=== PATIENT | female | born 1960 | race Caucasian/White ===

== ENCOUNTER 2016-12-05 20:46 | Inpatient (IN) | payer OTHER ==
[~2016-12-05] VITALS: Ht 152.4 cm; Wt 48.0 kg
[~2016-12-05 20:46] MED LIST: AMITRIPTYLINE H25 MG PO; NALTREXONE HCL50 MG PO; NICOTINE PATCH1 EAC1 TD; PRISTIQ ER50 MG PO; TRAMADOL HCL50 MG PO; ULTRAM50 MG PO; VITAMIN B-1100 MG PO; VITAMIN D31000 UNI1 PO
[2016-12-05] MEDS ORDERED: MIRTAZAPINE30 MG PO (21:11)
[2016-12-05] MEDS ORDERED: CHLORDIAZEPOXID25 MG PO (21:13)
[2016-12-05] MEDS ORDERED: METOPROLOL SUC100 MG PO (21:13)
[2016-12-05] MEDS ORDERED: MIRTAZAPINE15 MG PO (21:14)
[2016-12-05] MEDS ORDERED: MAG-OXIDE400 MG PO (21:14)
--- NOTE | 2016-12-05 23:30 | NUR ---
PT TO ROOM 127 FROM ER. PT AWAKE AND ALERT.
--- NOTE | 2016-12-06 00:03 | NUR ---
PT ABLE TO ANSWER QUESTIONS, PT C/O GENERAL SLIGHT DISCOMFORT IN HER RT WRIST, DENIES SOB, C/O SLIGHT NAUSEA. IV SITE INTACT, NO REDNESS OR SWELLING NOTED.
--- NOTE | 2016-12-06 00:30 | NUR ---
PT INCONTINENT OF STOOL, HEENA CARE DONE, NEW ATTENDS AND CHUCKS IN PLACE, BARRIER CREAM APPLIED TO HEENA AREA. URINARY VILLANUEVA CATH PLACED, PT RONNIE WELL, URINE RETURN OBTAINED.
--- NOTE | 2016-12-06 01:12 | NUR ---
PT INCONTINENT OF LIQUID STOOL, CHANGED ATTENDS, CHUCKS, AND BLANKETS. PT ALERT AND ORIENTED X3, NOT ORIENTED TO EVENTS LEADING UP TO THIS HOSPITALIZATION. PT COOPERATIVE. RONNIE SIPS OF WATER WELL.
--- NOTE | 2016-12-06 02:20 | NUR ---
PT INCONTINENT OF LIQUID STOOL. GOWN, LINENS, AND ATTENDS CHANGED. PT ABLE TO ASSIST SOME WITH ROLLING FROM SIDE TO SIDE, HOWEVER APPEARS TO BE VERY DECONDITIONED PHYSICALLY. PT STATES SHE WOULD NOT BE ABLE TO STAND AT THE BEDSIDE.
--- NOTE | 2016-12-06 02:50 | NUR ---
PT REFUSING PO POTASSIUM AT THIS TIME, STATES "I WILL TAKE THEM LATER".
--- NOTE | 2016-12-06 03:45 | NUR ---
PT SLEEPING AT THIS TIME. VITALS STABLE.
--- NOTE | 2016-12-06 04:23 | NUR ---
CALLED TO UPDATE ON PT LOW URINE OUTPUT FOR THE LAST 90 MIN. PT HAS PRODUCED 26 ML URINE. NO FURTHER ORDERS AT THIS TIME, CONTINUE TO MONITOR.
--- NOTE | 2016-12-06 04:31 | NUR ---
IV SITES INTACT, NO REDNESS OR SWELLING NOTED, FLUIDS INFUSING EASILY. PT MOSTLY SLEEPING.
--- NOTE | 2016-12-06 10:00 | NUR ---
HAS HAD SEVERAL STOOLS SINCE 729. STOOL SAMPLE SENT TO LAB. WRIST SPLINT TO RIGHT WRIST REMAINS IN PLACE.
--- NOTE | 2016-12-06 12:10 | NUR ---
STOOLS HAVE BEEN VERY WATERY. YELLOW LIQUID. BARRIER APPLIED TO BUTTOCKS AFTER STOOLS.
[2016-12-06] MEDS ORDERED: CHLORDIAZEPOXID25 MG PO (13:46)
--- NOTE | 2016-12-06 14:03 | EKG ---
[facility] [address] [facility] [place] [address] Signed Normal sinus rhythm Left axis deviation Pulmonary disease pattern Septal infarct , age undetermined ST \T\ T wave abnormality, consider inferolateral ischemia Abnormal ECG When compared with ECG of 17-SEP-2016 16:39, Septal infarct is now present Confirmed by JEANE FOX MD ([id number]) on 12/06/2016 2:03:10 PM Electronically Signed By: JEANE FOX MD 12/06/16 1403 PATIENT NAME: TOD FRANCES Electrocardiogram DATE OF : 64 PHYSICIAN: JEANE FOX MD REPORT #: [id number] REPORT IS CONFIDENTIAL AND NOT TO BE RELEASED WITHOUT AUTHORIZATION
--- NOTE | 2016-12-06 14:15 | NUR ---
DR. FOX CALLED IN AND UPDATED ON PATIENT STATUS. IS AWARE OF U/O. BOLUS OF LR 500 ML ORDERED.
--- NOTE | 2016-12-06 14:45 | NUR ---
BOLUS 500 ML HUNG.
--- NOTE | 2016-12-06 17:45 | NUR ---
CONTINUES TO HAVE VERY WATERY STOOLS.
--- NOTE | 2016-12-06 18:25 | NUR ---
TOOK ENSURE. INCONT OF STOOL. DR. MEEKS NOTIFIED OF LABS. ORDERS RECIEVED.
--- NOTE | 2016-12-06 19:03 | NUR ---
RSTFUL. REPORT GIVEN TO NEXT SHIFT. U/O OVER LAST HOUR=20 ML. TREND IS U/O DECREASING.
--- NOTE | 2016-12-06 19:05 | NUR ---
DR. WICK HERE TO SEE PATIENT. NO FUTHER ORDERS.
--- NOTE | 2016-12-06 21:00 | NUR ---
PT INCONTINENT OF LIQUID STOOL, CHANGED CHUCKS AND ATTENDS, VILLANUEVA CATH CARE AND HEENA CARE DONE.
--- NOTE | 2016-12-06 21:17 | NUR ---
PT INCONTINENT OF LARGE AMOUT OF LIQUID STOOL, WHOLE PILLS NOTED IN STOOL.
--- NOTE | 2016-12-06 23:33 | NUR ---
PT INCONTINENT OF LIQUID STOOL. CHANGED CHUCKS AND ATTENDS, HEENA CARE AND VILLANUEVA CATH CARE DONE. PT ABLE TO ASSIST WITH ROLLING TO SIDE SLIGHTLY. PT RONNIE SIPS OF WATER.
--- NOTE | 2016-12-07 01:37 | NUR ---
PT GIVEN IV ZOFRAN FOR REPORTED NAUSEA, PT REPORTS GERD DISCOMFORT, MAALOX OFFERED, PT REFUSED AT THIS TIME.
--- NOTE | 2016-12-07 02:45 | NUR ---
PT AWAKE, DENIES ANY NEEDS AT THIS TIME.
--- NOTE | 2016-12-07 04:35 | NUR ---
IV SITES INTACT, NO REDNESS OR SWELLING NOTED, PT DENIES PAIN WITH FLUSH, FLUIDS INFUSING EASILY. PT VITALS WNL. PT INCONTINENT OF LIQUID STOOL, WHOLE PILLS NOTED IN STOOL, ATTENDS AND CHUCKS CHANGED, HEENA CARE DONE, BARRIER CREAM APPLIED, VILLANUEVA CATH CARE DONE.
--- NOTE | 2016-12-07 05:00 | NUR ---
PT NOW HAS TAKEN OFFERED MAALOX FOR GERD DISCOMFORT.
--- NOTE | 2016-12-07 06:10 | NUR ---
PT INCONTINENT OF LARGE AMOUNT OF LIQUID STOOL. ATTENDS AND CHUCKS CHANGED, HEENA CARE AND VILLANUEVA CATH CARE DONE, BARRIER CREAM APPLIED. MILK BATH USED TO CLEAN SKIN, PT REPORTS IT IS LESS IRRITATING.
--- NOTE | 2016-12-07 08:03 | NUR ---
PT CARE ASSUMED. ASSISTED PT WITH BREAKFAST. PT ONLY ABLE TO EAT APPROX 1/4 OF BANANA. PT ALERT AND ORIENTED THOUGH HAS DIFFICULTY WITH SPEAKING DUE TO LACK OF DENTURES.
--- NOTE | 2016-12-07 08:41 | NUR ---
PT GIVEN BED BATH. PT REFUSED TO TAKE TUMS THIS AM BECAUSE SHE ISUNABLE TO CHEW THEM. PT IS AWARE THAT HER CALCIUM LEVEL IS LOW AND WOULD RATHER WAIT TO TAKE THEM.
--- NOTE | 2016-12-07 10:26 | NUR ---
PHYSICAL THERAPY IN ROOM WITH PT
--- NOTE | 2016-12-07 10:30 | NUR ---
PT UNWILLING TO STAND AT BEDSIDE WITH PHYSICAL THERAPY. EDUCATED PT ON NEED TO GET STRONGER AND BE ABLE TO AMBULATE ON OWN. PT STATES THAT SHE WILL NOT GET UP. SHE IS WILLING TO DO EXERCISES IN BED.
--- NOTE | 2016-12-07 11:25 | NUR ---
PTS AT BEDSIDE. LUNCH ORDERED
--- NOTE | 2016-12-07 12:06 | NUR ---
LINENS AND ATTENDS CHANGED. PT FED LUNCH. ABLE TO EAT APPROX 30%, GIVEN ENSURE MILKSHAKE. PT TO GO TO CT.
--- NOTE | 2016-12-07 12:48 | NUR ---
DISCUSSED CT ORDER WITH BOTH DR WICK AND DR PAYTON, ORDER TO GO AHEAD WITH ABD/PELVIS CT WITH CONTRAST
--- NOTE | 2016-12-07 13:00 | NUR ---
SPOKE WITH PATIENT AND S.O. IN ROOM. PATIENT STATES SHE WAS SO WEAK SHE COULDN'T WALK FOR A WEEK PRIOR TO COMING IN. PATIENT STATES SHE WILL NOT GO TO A DETENTION. STATES SHE IS GOING HOME WITH DAYSI. HER SIG OTHER, DAYSI, IS IN ROOM. HE STATES HE IS EXHAUSTED FROM HAVING TO CARRY HER AROUND THE HOUSE ALL WEEK. DISCUSSED WITH PATIENT THAT SHE WILL NEED TO BE ABLE TO BE UP AND AROUND BETTER SO DAYSI DOESN'T HAVE TO CARRY HER AT HOME. DISCUSSED THAT THIS PUTS THEM BOTH AT RISK FOR FALLS. SHE AGREES TO THAT. DISCUSSED HER WEAKNESS, POOR APPETITE, ETC. AND THAT THIS MIGHT MEAN SHE WILL NEED PHYSICAL THERAPY BEFORE RETURNING HOME. SHE STATES "THEY CAME IN TODAY". EXPLAINED SHE MIGHT NEED AN EXTENDED THERAPY NEED BEFORE BEING SAFE AT HOME. SHE STATES "I DOUBT THAT". AGREED SHE WILL TRY TO WORK WITH PT HERE, AND WE CAN DETERMINE WHAT IS NEEDED WHEN SHE IS CLOSER TO DISCHARGE. NO OTHER QUESTIONS AT THIS TIME.
--- NOTE | 2016-12-07 15:27 | NUR ---
PT TO CT WITH NURSING FRUIT GROWER, TECH, AND IMAGINING STUDENT
--- NOTE | 2016-12-07 16:19 | NUR ---
PT BACK FROM CT. ATTENDS AND LINENS CHANGED. BARRIER CREAM APPLIED TO BUTTOCKS.
--- NOTE | 2016-12-07 18:39 | NUR ---
PT WOKE FROM SLEEP CALLING OUT HER DAUGHTERS NAME. IN TO CHECK ON PT, PT REPORTS THAT SHE IS BACK AT HOME IN HER APARTMENT. REORIENTED PT TO SURROUNDINGS. PT THEN ASKS WHERE HER DAUGHTER IS. PT WAKES UP, BEGINS TO REORIENT SELF TO SURROUNDINGS AND EVENTS. BLOOD SUGAR 153, VITALS STABLE. WILL NOTIFY DR PAYTON
--- NOTE | 2016-12-07 19:00 | NUR ---
PT GIVEN 4 MG ZOFRAN FOR NAUSEA. SITTING UP IN BED.
--- NOTE | 2016-12-07 19:26 | NUR ---
ATTENDS CHANGED, BARRIER CREAM APPLIED
--- NOTE | 2016-12-07 19:35 | NUR ---
PT AWAKE IN BED, ATTENDS WERE RECENTLY CHANGED BY DAY SHIFT NURSE. REPORT RECEIVED FROM AMAN GAMEZ. PT DENIES PAIN/NEEDS, STATES SHE WILL CALL WITH ANY NEEDS. RESTING HR 103.
--- NOTE | 2016-12-07 21:30 | NUR ---
ASSESSMENT DONE, ALVIN GOMEZ, ATTENDS CHANGED OF WATERY YELLOW STOOL, PT CONTINUOUSLY HAVING DIARRHEA, HEENA AREA RED AND EXCORIATED LOOKING, BARRIER CREAM APPLIED, VILLANUEVA CARE DONE. VILLANUEVA EMPTIED OF 200ML ISABELLA URINE. ALERT AND ORIENTED, DENIES NEEDS AT THIS TIME, JUST WANTS TO GO TO SLEEP.
--- NOTE | 2016-12-07 22:30 | NUR ---
URINE OUTPUT 200ML LAST 8HOURS. DR PAYTON NOTIFIED/AWARE, WILL CONTINUE TO MONITOR BP'S AND URINE OUTPUT AT THIS TIME.
--- NOTE | 2016-12-07 23:45 | NUR ---
ATTENDS CHANGED, PT INC WATERY STOOL, HEENA CARE DONE, PT TURNED TO RIGHT SIDE.
--- NOTE | 2016-12-08 01:35 | NUR ---
PT AWAKE IN BED WATCHING TV, DENIES NEEDS, CONTINUE TO MONITOR BP AND URINE OUTPUT.
--- NOTE | 2016-12-08 03:17 | NUR ---
DR PAYTON UPDATED REGARDING CONTINUED LOW BP'S AND URINE OUTPUT. ORDER GIVEN FOR 250ML BOLUS OF NS. PT AWAKE IN BED WATCHING TV. ATTENDS CLEAN.
--- NOTE | 2016-12-08 03:43 | NUR ---
ATTENDS CHANGED, LIQUID YELLOW STOOL, HEENA AREA VERY RED/EXCORIATED. BARRIER CREAM APPLIED, PT REPOSITIONED. C/O IV PUMP NOISE, EAR PLUGS GIVEN. LAST BP 95/66, IMPROVED SINCE NS BOLUS GIVEN.
--- NOTE | 2016-12-08 05:04 | NUR ---
BPS ARE TRENDING DOWN, LAST BP 76/[address] PAYTON [address]ED, ORDER GIVEN FOR SECOND BOLUS OF 250ML NS. PT SLEEPING, HR 90.
--- NOTE | 2016-12-08 08:10 | NUR ---
PT IS RESTINJG IN BED SAFELY WITH EYES CLOSED, RESPERATIONS EVEN.
--- NOTE | 2016-12-08 09:15 | NUR ---
REPORT RECIEVED AT BEDSIDE.
--- NOTE | 2016-12-08 09:34 | NUR ---
ATTENDS CHANGED. PTS BUTTOCKS AND HEENA AREA REMAIN VERY EXCORIATED. ICE MILK BATH USED TO HELPO SOOTH AREA. BARRIER CREAM APPLIED. PT SEEMED TO TOLERATE THIS BETTER THAN HEENA AREA WIPES. DR PAYTON IN ROOM TO SEE PT.
--- NOTE | 2016-12-08 10:35 | NUR ---
FIRST UNIT OF PRBC'S HUNG.
--- NOTE | 2016-12-08 10:50 | NUR ---
VILLANUEVA CATH DC'D PER DR PAYTON ORDERS. MAG RIDER INFUSING. RECTAL TUBE PLACED. HAS BEEN INC OF LIQ STOOL. HEENA AREA AND BUTTOCKS WITH SEVERE EXCORATION. VERY RED AND PAINFUL. HAVING DIFFICULT TIME CLEANING PATIENT THIS IS SO PAINFUL
--- NOTE | 2016-12-08 11:58 | NUR ---
TALKED TO PATIENT THIS MORNING. REALLY EMPHASIZED THE IMPORTANCE OF NUTRITION AND EATING TO HELP HER GET BETTER. SHE WAS WORKING ON EATING A BANANA AND I BROUGHT UP A VANILLA ENSURE MILKSHAKE FOR HER TO DRINK. SHE LIKES VANILLA MILKSHAKES. WILL WORK ON HER EATING SMALL PORTIONS SEVERAL TIMES THROUGHOUT THE DAY. START SMALL, OVER TIME, PORTIONS HOPEFULLY CAN INCREASE.
--- NOTE | 2016-12-08 12:02 | NUR ---
PT IS LYING IN BED WITH CALL LIGHT IN REACH. PT IS REFUSING TO EAT LUNCH
--- NOTE | 2016-12-08 13:10 | NUR ---
2ND UNIT PRBC'S HUNG.
--- NOTE | 2016-12-08 14:00 | NUR ---
COLD MILK TO HEENA AREA POURED OVER HEENA AREA. STOOL LEAKING AROUND RECTAL TUBE. UNABLE TO TELL IF PATIENT HAS VOIDED BLENDS WITH STOOL. BLOOD INFUSING WITHOUT PROBLEMS. IV STARTED TO R WRIST. IV TO L WRIST DC'D PATIENT C/O PAIN AT SITE.
--- NOTE | 2016-12-08 14:00 | NUR ---
RECTAL TUBE DISLODGED. INC OF LG STOOL. RECTAL TUBE REPLACED.
--- NOTE | 2016-12-08 15:04 | NUR ---
2ND UNIT PRBC'S INFUSED.
--- NOTE | 2016-12-08 16:01 | NUR ---
PT IS RESTING SAFELY IN BED WITH CALL LIGHT IN REACH. PT INFORMED ME SHE HAD A BOWEL MOVEMENT WAS CHANGED
--- NOTE | 2016-12-08 17:20 | NUR ---
BLADDER SCAN DONE. 243 ML. HAS NOT VOIDED SINCE VILLANUEVA DC.
--- NOTE | 2016-12-08 19:00 | NUR ---
DR. PAYTON AWARE OF BLADDER SCAN AND PT HAS NOT VOIDED SINCE VILLANUEVA DC'D AT 1050 TODAY. NO FURTHER ORDERS. REPORT TO NEXT SHIFT.
--- NOTE | 2016-12-08 19:48 | NUR ---
REPORT RECEIVED FROM DELLA GAMEZ. PT AWAKE IN BED, ASSESSMENT DONE. DENIES PAIN, HELPED TO REPOSITION IN BED. RECTAL TUBE IN PLACE DRAINING LIQUID YELLOW STOOL. HELPED WITH DRINKS OF ENSURE AND WATER, NO FURTHER REQUESTS, WILL CALL WITH ANY NEEDS, DOES NOT HAVE URGE TO VOID AT THIS TIME.
--- NOTE | 2016-12-08 20:38 | NUR ---
PT STILL HAS NOT VOIDED, DENIES URGE TO VOID, BLADDER SCAN SHOWS 179ML. DR PAYTON CALLED AND NOTIFIED, WILL CONTINUE TO MONITOR AT THIS TIME, NO NEW ORDERS.
--- NOTE | 2016-12-08 23:13 | NUR ---
PT REPOSITIONED UP IN BED, RECTAL TUBE HAS 900ML IN SINCE IT WAS PLACED. HEENA AREA CLEANED AND DESITIN APPLIED.
--- NOTE | 2016-12-09 01:37 | NUR ---
PT CALLS TO STATE SHE VOIDED, ATTENDS WET, CHANGED, GOOD HEENA CARE AND VILLANUEVA CARE DONE AND DESITIN APPLIED. AREA STILL RED, EXCORIATED. ALLEVYN FOAM DRESSING APPLIED TO TWO SMALL OPEN AREAS ON LOWER BACK. PT REPOSITIONED. PT SOUNDING WHEEZY, ATTEMPTS TO CLEAR THROAT, STILL WHEEZY WITH RATTLE HEARD IN THROAT. RECTAL TUBE STILL IN PLACE DRAINING LIQUID STOOL. SIPS OF WATER GIVEN.
--- NOTE | 2016-12-09 04:15 | NUR ---
PT SLEEPING, APPEARS TO BE RESTING WELL THE LAST COUPLE OF HOURS. HR IN THE 80'S RESP EVEN AND UNLABORED, SLIGHT WHEEZE HEARD. SPO2 100% ON ROOM AIR.
--- NOTE | 2016-12-09 06:11 | NUR ---
PT CONTINUES TO SLEEP, RESP EVEN AND UNLABORED. HR IN THE 80'S.
--- NOTE | 2016-12-09 08:43 | NUR ---
IN ROOM TO COMPLETE ASSESMENT AND GIVE AM MEDICATION. PT NOT WANTING TO ANSWER QUESTIONS OR TAKE MEDICATION. EXPLAINED THE IMPORTANCE OF TAKING MEDICATION. PT VERBALIZED UNDERSTANDING AND TOOK MEDICATION. ASKED PT IF SHE WANTED TO GET OUT OF BED TO CHAIR. PT ASKED TO BE LEFT ALONE TO REST.
--- NOTE | 2016-12-09 09:15 | NUR ---
CHANGED RECTAL TUBE BAG. BAG WAS FULL OF BROWN LIQUID STOOL.
--- NOTE | 2016-12-09 09:15 | NUR ---
OFFERED PT BED BATH. REFUSED AT THIS TIME. PT STATED, "IM VERY TIRED RIGHT NOW"
--- NOTE | 2016-12-09 09:27 | NUR ---
pt had coughing episode that caused pt her to have small amount of emesis. gave 4mg zofran at this time.
--- NOTE | 2016-12-09 10:17 | NUR ---
TURNED AND REPOSITIONED PT ONTO LEFT SIDE. CHECKED ATTENDS AT THIS TIME. THEY REMAIN DRY. NO URINE OUTPUT THIS SHIFT.
--- NOTE | 2016-12-09 11:17 | NUR ---
PT RESTING IN BED WITH EYE'S CLOSED. RESPIRATIONS EVEN AND ULABORED. CALL LIGHT WITHIN REACH.
--- NOTE | 2016-12-09 11:51 | NUR ---
REPORT GIVEN TO PAVEL GAMEZ ON MED SURG. ALL QUESTIONS ANSWERED. PT WILL BE MOVING TO ROOM 113 ON MED SURG.
--- NOTE | 2016-12-09 12:09 | NUR ---
PT TRANSFERED TO MED SURG VIA BED. REPORT GIVEN TO PAVEL GAMEZ.
--- NOTE | 2016-12-09 15:10 | NUR ---
PT IN BED. RECTAL TUBE DRAINING. PT HAS NOT VOIDED, MD AWARE OF LOW OUTPUT. PT HAS FRIEND AT BEDSIDE. PT WANTS TO PREFORM ORAL CARE.
--- NOTE | 2016-12-09 17:16 | NUR ---
CCU TRANSFER THIS AFTERNOODN. PT IS ON BEDREST. LOW URINE OUTPUT, MD AWARE. RECTAL TUBE IN PLACE, DRAINING LARGE AMOUNTS OF YELLOW-BROWN LIQUID STOOL. BOTTOM IS RED AND RAW, PRN BARRIER CREAM APPLIED. NEEDS ASSISTANCE WITH FEEDING, OFTEN REFUSES MEALS. PT IS SLOW TO RESPOND. MAG RIDER AND K RIDER GIVEN ON CCU.
--- NOTE | 2016-12-09 18:15 | NUR ---
ADVISED DR. PAYTON OF LACK OF URINE OUTPUT, NO OUTPUT IN LAST [address] PAYTON ADVISED TO MONITOR.
--- NOTE | 2016-12-09 18:27 | NUR ---
PT IS UPSET ABOUT THE RECTAL TUBE. SHE WOULD LIKE IT REMOVED. RN AND PT FRIEND EXPLAINED NEED FOR THE TUBE TO PROTECT SKIN AND PROMOTE HEALING. PT VERBALIZED UNDERSTANDING AND AGREED TO KEEP THE TUBE. TUBE HAS LARGE AMOUNTS OF OUTPUT, YELLOW/BROWN IN COLOR WITH FEW SOLID PARTICLES. MD AWARE OF LACK OF URINE OUTPUT AND AMOUNT OF STOOL OUTPUT. MONITOR AT THIS TIME.
--- NOTE | 2016-12-09 19:49 | NUR ---
RECEIVED REPORT FROM DAY SHIFT RN. PATIENTS ATTEND IS WET AND SO IS THE BEDDING. PATIENTS BEDDING AND ATTEND CHANGED. HEENA CARE PERFORMED AND CREAM APPLIED TO PATIENTS BUTTOCKS. PATIENT REPOSITIONED IN BED. PATIENT DENIES ANY PAIN. PATIENT DENIES ANY NEEDS AT THIS TIME. CALL LIGHT IN REACH.
--- NOTE | 2016-12-09 21:52 | NUR ---
PATIENT ASSESMENT COMPLETED. PATIENT DENIES ANY PAIN AT THIS TIME. PATIENTS ATTEDN CHANGED AND HEENA CARE PERFOMED. RECTAL TUBE REMAINS IN PLACE. PATIENTS RECTAL TUBE EMPTIED AND OUTPUT RECORDED. PATIENT REPOSITIONED IN BED. PATIENTS EVENING MEDICATIONS GIVEN PER ORDER. PATIENT DENIES ANY FURTHER NEEDS AT THIS TIME. CALL LIGHT IS WITHIN REACH.
--- NOTE | 2016-12-09 23:32 | NUR ---
PATIENT ALERTED STAFF THAT ATTEND WAS WET. HEENA CARED PREFORMED. RECTAL TUBE REMAINS IN PLACE. BARRIER CREAM WAS APPLIED TO BOTTOM. PATIENT REPORTS TENDERNESS IN HEENA AND BUTTOCK AREA. PATIENT RESTING IN BED. CALL LIGHT WITHIN REACH. NO FURTHER REQUEST AT THIS TIME.
--- NOTE | 2016-12-10 01:26 | NUR ---
WHILE CHECKING ON PATIENT. PATIENT WAS TRYING TO GET OUT OF BED AND STATED "I NEED TO GO TO THE [place] FOR A DRINK" PATIENT REORIENTED TO TIME, PLACE, SURROUNDINGS, AND EVENT. PATIENT GIVEN A WARM BLANKET AND FRESH ICE WATER. PATIENTS APPEARS CONFUSED. PATIENTS BED ALARM PLACED ON FOR SAFETY. CALL LIGHT IS WITHIN REACH.
--- NOTE | 2016-12-10 03:56 | NUR ---
PATIENTS ATTEND CHANGED AND HEENA CARE PERFORMED. PATIENTS HEENA AREA REMAINS RED AND IRRITATED. DESISTIN APPLIED TO HEENA AREA. PATIENT IS RAMBLING AND SPEACH IS GARBLED. PATIENT REORIENTED TO DATE, TIME, EVENT, AND SURROUNDINGS. PATIENTS BED ALARM PLACED ON FOR SAFETY CALL LIGHT IN REACH.
--- NOTE | 2016-12-10 05:13 | NUR ---
PATIENT RESTED ON AND OFF THROUGHOUT THE SHIFT. PATIENT IS CONFUSED AND FORGETFUL AT TIMES AND SPEACH IS GARBLED AT TIMES. PATIENT IS ON BED REST. PATIENT IS INCONTINENT OF URINE. PATIENT HAS A RECTAL TUBE IN PLACE AND IS IS PUTTING OUT A LOARGE AMOUNT OF YELLOW COLORED STOOL. PATIENT IS ON A REG DIET AND HAS A DECREASES INAKE, PO INTAKE IS ENCOURAGED. PATIENT USES CALL LIGHT ANOUT 50% OF THE TIME. PATIENTS BED ALARM IS PLACED ON FOR SAFETY.
--- NOTE | 2016-12-10 06:29 | NUR ---
PATIENTS VITALS TAKEN AND RECORDED. PATIENT DENIES ANY PAIN AT THIS TIME. PATIENTS ATTEND IS DRY AT THIS TIME. PATIENTS RECTAL TUBE BAG CHANGED. PATIENTS BED ALARM REMAINS ON FOR SAFETY. CALL LIGHT IN REACH.
--- NOTE | 2016-12-10 07:12 | NUR ---
RECIEVED BEDSIDE REPORT FROM FRANCO LAWSON AND FRANCO RAYMOND. PT AWAKE AND ALERT. DISCUSSED PLAN OF CARE.
--- NOTE | 2016-12-10 10:12 | NUR ---
PT SLEEPING, BREATHING EVEN AND UNLABORED. RECTAL TUBE COLLECTION BAG INTACT.
--- NOTE | 2016-12-10 10:59 | NUR ---
Although metoprolol was added to her med rec, per records from August 2016, metoprolol is not an active medication.
--- NOTE | 2016-12-10 11:01 | NUR ---
patient did not want breakfast, she requested ice chips and she also did not order anything for lunch. i have notified the nurse.
--- NOTE | 2016-12-10 11:31 | CONS ---
[facility] [address] [place], [place] [address] Signed DATE OF SERVICE: 12/06/2016 CONSULTING PHYSICIAN: Mag Wick MD REQUESTING PHYSICIAN: Dr. Shukla. PROBLEMS: Diarrhea and abdominal distention. HISTORY OF PRESENT ILLNESS: This 56-year-old white woman is admitted by Dr. Shukla on December 05, 2016, at approximately 11:30 p.m. She has a longstanding history of chronic alcoholism and recently diarrhea of a long-standing nature at least 4 weeks. She has had development of gradual weakness overall, uncertain if it was related to the diarrhea. She has had no blood per rectum she tells me and has undergone colonoscopy by Dr. Calvo in 2014. I reviewed that operative note by Dr. Calvo which showed diverticular disease. No evidence of colitis and small polyps. Notably, the patient does have family history of colon cancer in her mother. The patient has been hospitalized in late August for metabolic encephalopathy as well as generalized weakness, hypomagnesemia, and hypokalemia. This was all considered likely related to her longstanding alcoholism. The patient has had poor oral intake, not eating well and generally considered to have significant malnutrition. Her admission potassium was 2.4, bicarb of 34, creatinine elevation to 2.12. Liver enzymes normal, albumin 2.1. White count of 10, hematocrit 25.5, and platelet count of 276,000. The tox screen was positive for benzodiazepines, but otherwise normal. Alcohol was less than 10. Urinalysis was essentially normal. On examination, the patient was noted to have a painful right wrist. A chest x-ray showed no sign of pneumonia or pneumothorax or effusion. There is irregularity of the left distal clavicle considered likely related to old trauma. A displaced wrist fracture of the right wrist is noted including a widened scapholunate interval suggesting a ligamentous tear. I am told that Dr. Calvo consulted on the patient and has requested a CT scan of the wrist. Concern has been maintained by Dr. Shukla regarding her diarrhea and particular relationship to her family history of colon cancer in her mother. The patient denies any abdominal pain associated with her abdominal distention and denied any blood per rectum per se. Electronically Signed By: MAG WICK MD 12/10/16 1131 PATIENT NAME: TOD FRANCES CONSULTATION DATE OF : 64 PHYSICIAN: MAG WICK MD REPORT #: [id number] REPORT IS CONFIDENTIAL AND NOT TO BE RELEASED WITHOUT AUTHORIZATION [facility] [address] [place], [place] [address] Signed PHYSICAL EXAMINATION: GENERAL: A cachectic white woman who looks chronically ill and far older than her age stated of 56 years. HEENT: She has poor dentition. She has sunken cheek bones and temporalis muscle area. Trachea is midline. I detect no cervical adenopathy. CHEST: Shows diminished breath sounds. HEART: Regular. I detect no murmur. ABDOMEN: Somewhat doughy and distended appearance, initially grossly suggestive of ascites, but without a fluid wave per se. There is no focal tenderness. EXTREMITIES: Showed no sign of peripheral edema despite her low albumin level. IMAGING STUDIES: Chest x-ray performed December 05 was as previously described. There is no evidence of pleural effusion, though there is elevation of right hemidiaphragm. Abdominal ultrasound performed in July of this year showed no evidence of gallstones or other problem. There is an echodense liver consistent with fatty infiltration or other diffuse disease. ASSESSMENT AND PLAN: The patient's long-standing chronic alcoholism no doubt contributes to her malnutrition overall. She does have low albumin, but no sign of peripheral edema. Abdominal examination is suggestive of nondiagnostic ascites. She would be at increased risk for that including alcohol-related cirrhotic changes of the liver or ascites related to hypoalbuminemia otherwise. She has no ankle edema to suggest this, how e rojas. Her diarrhea is at least 4 weeks in duration and may be contributory to her overall general poor health, but in particular concern must be maintained regarding family history of colon cancer in her mother. Her colonoscopy in 2015 appeared to be complete, it did show minimal polyp disease and no evidence of malignancy or colitis. She did have diverticular changes. I would suggest a CT scan be obtained of the abdomen and pelvis to assess for neoplastic disease elsewhere, ascertain the true underlying c ause of her abdominal distention (air in bowel versus ascites in fact) and to assess for possible neoplastic change of gastrointestinal tract accounting for problems. A colonoscopy certainly could be undertaken to better characterize her diarrhea problem. One might consider an alcoholic enteropathy as contributory to the problem, however. Infectious causes are consideration as well and stool has been sent for Clostridium difficile and other infectious assessments. This apparently does include Cryptosporidium and that evaluation showed no evidence of such pathogen. No ova or parasites were seen and stool showed no evidence of white cells, therefore unlikely to be a colitis problem particularly. I discussed with the patient the possible need for colonoscopy initially she is resistant to it, but might be more open to it in the near future. Electronically Signed By: MAG WICK MD 12/10/16 1131 PATIENT NAME: TOD FRANCES CONSULTATION DATE OF : 64 PHYSICIAN: MAG WICK MD REPORT #: [id number] REPORT IS CONFIDENTIAL AND NOT TO BE RELEASED WITHOUT AUTHORIZATION [address] [place], [place] [address] Signed MD WILLIE Graham/Sosa /[id number] cc: Dr. Shukla Electronically Signed By: MAG WICK MD 12/10/16 1131 PATIENT NAME: TOD FRANCES CONSULTATION DATE OF : 64 PHYSICIAN: MAG WICK MD REPORT #: [id number] REPORT IS CONFIDENTIAL AND NOT TO BE RELEASED WITHOUT AUTHORIZATION
--- NOTE | 2016-12-10 12:03 | NUR ---
ROUNDED WITH DR PAYTON. PT IS IMPROVING, ALTHOUGH SLOWLY. MAGNISUM IS RUNNING. ALL QUESTIONS ANSWERED.
--- NOTE | 2016-12-10 16:47 | NUR ---
PT RESTING BACK IN BED. PT REPORTS "ANAL DISCOMFORT" AND FEELS NEED TO DEFICATE. REMINDED PT THAT SHE HAS A TUBE THAT IS CONSTENTLY DRAINING FECAL MATTER.
--- NOTE | 2016-12-10 17:50 | NUR ---
PT HAD A NON-INJURY ASSISTED FALL TO THE FLOOR, WITNESSED BY DEPENDENCY DIRECTOR AND PHYSICAL THEARPY. PT WAS ASSISTED TO THE CHAIR, WAS IN THE CHAIR FOR MOST OF THE DAY. PT IS SLOWLY IMPROVING. PT HAS 2 IVS, ORDER IS IN FOR A PICC CONSULT WHEN PROVIDER IS AVAILABLE. D5NS WITH 20KCL RUNNING, 2 MAG RIDERS GIVEN. RECTAL TUBE DRAINING. INCONT VOIDS THIS SHIFT. PT REFUSED CALCIUM CARBONATE AT LUNCH. PT REFUSED MEALS AND SUPPLEMENTS.
--- NOTE | 2016-12-10 18:14 | NUR ---
ADVISED MD OF BLOOD PRESSURES. RECHECK MANUALLY.
--- NOTE | 2016-12-10 18:19 | NUR ---
RECHECKED BLOOD PRESSURE MANUALLY, 158/86. ADVISED .
--- NOTE | 2016-12-10 19:10 | NUR ---
BEDSIDE REPORT RECEIVED FROM OFFGOING NURSE. PT LYING IN BED WATCHING TV. PT DENIES NEEDS AT THIS TIME. CALL LIGHT WITHIN REACH.
--- NOTE | 2016-12-10 21:15 | NUR ---
PT ASSESSMENT COMPLETE. PT ORIENTED TO SELF. UNABLE TO ACCURATELY STATE PLACE, DATE. SLOW TO RESPOND TO QUESTIONS WITH SLURRED SPEECH. ABD FIRM, PT DENIES TENDERNESS. BRUSING AND SCABS PRESENT TO VARIOUS AREAS. ATTENDS IN PLACE FOR INCONTINENCE OF URINE. RECTAL TUBE REMAINS IN PLACE. PT'S ICE WATER REFILLED, PT DENIES OTHER NEEDS. CALL LIGHT WITHIN REACH.
--- NOTE | 2016-12-11 00:30 | NUR ---
IV IN LAC POSITIONAL, IV ALARMING FREQUENTLY. NEW IV IN R FOREARM PLACED, FLUSHED WITH 10ML NS. PT TOLERATED WELL. IV FLUIDS HOOKED TO NEW IV SITE, IV SITE PATENT. PT DENIES OTHER NEEDS. CALL LIGHT WITHIN REACH.
--- NOTE | 2016-12-11 00:58 | NUR ---
PT RESTING WITH EYES CLOSED. WAKES EASILY. DENIES NEEDS. CALL LIGHT WITHIN REACH.
--- NOTE | 2016-12-11 02:30 | NUR ---
PT RESTING WITH EYES CLOSED. RESPIRATIONS EVEN AND UNLABORED. PT APPEARS TO BE SLEEPING. CALL LIGHT WITHIN REACH.
--- NOTE | 2016-12-11 04:46 | NUR ---
PT RESTED WELL THROUGHOUT THE NIGHT. PT REMAINS CONFUSED TO PLACE, TIME, AND EVENT. PULLED HER IV EARLY IN THE SHIFT, REPLACED DUE TO SECOND SITE BEING EXTREMELY POSITIONAL. ORDER IN PLACE FOR PICC CONSULT ON OR AROUND SUNDAY WHEN PROVIDER AVAILABLE. D5NS WITH 20KCL. RECTAL TUBE. INCONTINENT OF URINE, ATTENDS IN PLACE. DESITIN FOR EXCORIATIONS. 2 PERSON PIPPA TRANSFER.
--- NOTE | 2016-12-11 08:01 | NUR ---
PT IN BED, AWAKE, ORIENTED TO SELF, , MONTH AND YEAR, DISORIENTED TO SURROUNDINGS, PLACE, DAY. DRANK WATER, BUT REFUSED BREAKFAST AT THIS TIME. ENCOURAGED PT TO EAT, PT STATED THAT SHE IS TIRED AND JUST WANTS TO SLEEP RIGHT NOW. DENIES HEADACHE, NAUSEA. BOWEL TONES HYPERACTIVE.
--- NOTE | 2016-12-11 08:05 | NUR ---
LINA RN, CLEM REPORTED LEFT UPPER ARM IV PRESENT, NO RECORD OF THIS IV NOTED IN ASSESSMENT. IV IS 22 GAUGE, WINDOW DRESSING, SALINE LOCKED, FLUSHES WITHOUT ISSUE, WNL.
--- NOTE | 2016-12-11 08:30 | NUR ---
BED BATH GIVEN. HEENA CARE DONE. VAGINA SWOLLEN AND RED. BOTTOM RED. NURSE THERE TO SEE. SKIN CARE DONE. PATIENT REFUSED ORAL CARE. SHAMPOO DONE. 2 PERSON ASSIST WITH PIPPA TO CHAIR. TWO PILLOWS UNDER BOTTOM TO FLOAT. CALL BUTTON IN REACH. BREAKFAST ON TRAY. FRESH ICE WATER GIVEN. WARM BLANKET GIVEN. NO OTHER NEEDS AT THIS TIME.
--- NOTE | 2016-12-11 11:30 | NUR ---
PATIENT BACK TO BED 2 PERSON ASSIST WITH PIPPA. HEENA CARE DONE. SKIN CARE DONE. PATIENT TURNED TO RIGHT SIDE. PATIENT SITTING UP RIGHT WITH LUNCH IN FRONT OF HER. CALL BUTTON IN REACH. NO OTHER NEEDS AT TIME.
--- NOTE | 2016-12-11 12:28 | NUR ---
DR. FOX IN TO SEE PT. PT IN BED WITH HOB ELEVATED. CONTIUES TO HAVE DIARRHEA VIA RECTAL TUBE. PT SIPPING ON ENSURE, REFUSED LUNCH.
--- NOTE | 2016-12-11 14:46 | NUR ---
RECTAL TUBE BALLON DEFLATED, RECTAL TUBE REMOVED PER DR. FOX. PT HAS ATTENDS ON. TOLERATED REMOVAL WELL.
--- NOTE | 2016-12-11 15:20 | NUR ---
PATIENT IN BED HAD A BM. DIAPER CARE DONE. PATIENT FLOATED ON ONE PILLOW ON EACH SIDE. CALL BUTTON IN REACH. FRESH ICE WATER GIVEN. NO OTHER NEEDS AT THIS TIME.
--- NOTE | 2016-12-11 18:09 | NUR ---
PT IN BED, REPOSITIONED. DENIED NEEDS AT THIS TIME.
--- NOTE | 2016-12-11 18:19 | NUR ---
LUE 22G IV NAIN, WNL, PATENT.
--- NOTE | 2016-12-11 18:25 | NUR ---
PT WEAK, TRANSFERED TO RECLINER FROM BED WITH PIPPA TRANSFER WITH 2 PERSON ASSIST, AND BACK TO BED FROM RECLINER WITH 2 PERSON ASSIST. PT HAD A RECTAL TUBE THIS SHIFT, WHICH WAS D/C'D THIS AFTERNOON. PT STARTED IMODIUM SCHEDULED FOR LIQUID STOOLS. LIQUID STOOLS HAVE SLOWED BUT REMAIN LIQUID. PT INCONTINENT OF URINE AND STOOL. PT ALERT, BUT HAS BEEN DISORIENTED TO PLACE, SURROUNDINGS, EVENTS. APETITE POOR, DID DRINK ENSURE AT MEAL TIMES WITH ENCOURAGEMENT. DESITIN TO HEENA AREA AND BUTTOCKS FOR EXCORIATIONS/REDDENED AREAS. ABDOMEN FIRM, DISTENDED.
--- NOTE | 2016-12-11 19:15 | NUR ---
Bedside report received from offgoing nurse. Pt lying in bed awake. Denies needs at this time. Call light within reach.
--- NOTE | 2016-12-11 21:30 | NUR ---
PT ASSESSMENT COMPLETED. PT DENIES PAIN OR NAUSEA. PT ORIENTED TO SELF, AND PLACE. UNAWARE OF DATE, STATES THAT IT IS 1991. ABDOMEN FIRM AND DISTENDED. PT DENIES TENDERNESS. BT'S ACTIVE. ATTENDS IN PLACE, CHANGED BY PAYING TELLER AND FINISHED GOODS INSPECTOR. PT'S PERIAREA REMAINS EXCORIATED. DESITIN APPLIED. ALLEVYN FOAM REMAINS IN PLACE TO PT'S SACRUM. PT POSITIONED WITH PILLOW. TOLERATED WELL. PT UNDERSTANDS NPO STATUS @ MIDNIGHT. PT DENIES FURTHER NEEDS. CALL LIGHT WITHIN REACH.
--- NOTE | 2016-12-12 | NUR ---
ALL BEVERAGES REMOVED FROM PT'S BEDSIDE. PT LYING AWAKE IN BED. EDUCATION PROVIDED REGARDING NPO STATUS. PT STATES UNDERSTANDING. DENIES FURTHER NEEDS. CALL LIGHT WITHIN REACH.
--- NOTE | 2016-12-12 00:40 | NUR ---
PT ASSESSMENT COMPLETED. PT DENIES PAIN OR NAUSEA. PT ORIENTED TO SELF, AND PLACE. UNAWARE OF DATE, STATES THAT IT IS 1991. ABDOMEN FIRM AND DISTENDED. PT DENIES TENDERNESS. BT'S ACTIVE. ATTENDS IN PLACE, CHANGED BY AIRCRAFT DE ICER INSTALLER AND MERIT SYSTEM DIRECTOR. PT'S PERIAREA REMAINS EXCORIATED. DESITIN APPLIED. ALLEVYN FOAM REMAINS IN PLACE TO PT'S SACRUM. PT POSITIONED WITH PILLOW. TOLERATED WELL. PT UNDERSTANDS NPO STATUS @ MIDNIGHT. PT DENIES FURTHER NEEDS. CALL LIGHT WITHIN REACH.
--- NOTE | 2016-12-12 03:14 | NUR ---
PT ASSESSMENT COMPLETE. PT DENIES PAIN OR NAUSEA. ABD CONTINUES TO BE FIRM ND SEVERLY DISTENDED. BT'S HYPERACTIVE. PT DENIES ABD TENDERNESS. PT REPOSITIONED AND ATTENDS CHANGED. PT CONTINUES TO SEEP STOOL UNCONTROLABLY. PT STATES THAT SHE IS NOT AWARE THAT BOWELS ARE MOVING. PT ALERT AND ORIENTED TO SELF AND PLACE. UNABLE TO ACCURATELY RECALL DIET ORDER, PROCEDURE SCHEDULED FOR AM. PT THINKING SHE HAD ALREADY HAD PROCEDURE PERFORMED. PT PROPPED WITH PILLOW. CALL LIGHT WITHIN REACH. PT DENIES OTHER NEEDS.
--- NOTE | 2016-12-12 03:18 | NUR ---
NOTED PER PREVIOUS RN, IV PRESENT TO L UPPER ARM. IV NOT POPULATING TO PATIENT ASSESSMENT. IV SITE SL. WINDOW DRESSING IN PLACE. SITE WNL. IV PLACED 12/07/2016. DUE TO BE DC'D.
--- NOTE | 2016-12-12 05:03 | NUR ---
PT SLEPT WELL THROUGHOUT THE SHIFT. DENIES PAIN OR NAUSEA. ABD FIRM AND SEVERLY DISTENDED. INCONTINENT OF STOOL AND URINE, STOOL CONTINOUSLY SEEPING DURING ATTENDS CHANGES. DESITIN CONTINUES TO HEENA AREA FOR EXCORIATIONS. ALLEVYN FOAM TO SACRUM. PT TO HAVE COLONOSCOPY TODAY. PIPPA TRANSFER.
--- NOTE | 2016-12-12 05:19 | NUR ---
PT MOM STAYED THE NIGHT ON COUCH. PT SLEPT VERY WELL THROUGHOUT THE NIGHT. PHENERGRAN X 1 FOR NAUSEA. ABD CONTINUES TO BE FIRM AND TENDER. PT HAVING SOFT/LIQUID STOOL. [address]ACCUC[address] SSI. PT TOLERATING CLEAR LIQUID DIET. PT WEAK BUT INDEPENDENT IN ROOM. IV SL.
--- NOTE | 2016-12-12 08:30 | NUR ---
BED BATH DONE ONE PERSON ASSIST. HEENA, SKIN CARE DONE. CAN NOT REMOVE DENTURES AT THIS TIME. SHAMPOO DONE. CLEAN LINENS. PATIENT TURNED ON LEFT SIDE. CALL BUTTON IN REACH. WARM BLANKET GIVEN. NO OTHER NEEDS AT THIS TIME.
--- NOTE | 2016-12-12 08:49 | NUR ---
PT GIVEN ENEMA, WHICH CAME BACK OUT IMEDIATELY, CLEAR YELLOW FLUID. PT HAS BEEN HAVING CLEAR YELLOW LIQUID DIARRHEA. DESITIN APPLIED TO BUTTOCKS, HEENA AREA. PT REMAINS NPO.
--- NOTE | 2016-12-12 10:05 | NUR ---
PT IN BED, USING RIGHT HAND TO COMB HAIR WITH OCCUPATIONAL THERAPIST ASSISTANCE. PT HOLDING COMB INDEPENDANTLY.
--- NOTE | 2016-12-12 12:29 | NUR ---
PT LEFT FLOOR VIA STRETCHER ACCOMPANIED BY KATERINE Quesada, DAY SURGERY RN AT 1228. PT TO DAY SURGERY FOR COLONOSCOPY WITH BIOPSY.
--- NOTE | 2016-12-12 13:28 | NUR ---
12/12/16 1328 Lisa Mandujano 1322 PATIENT ARRIVES TO PACU UNRESPONSIVE TO VERBAL OR PAINFUL STIMULI. RESP EVEN, BUT TACHY, CONSUMER CREDIT COUNSELOR AWARE. ORAL AIRWAY IN PLACE, MASK AT 10 LITERS. 1325 PATIENT OPENS EYES TO VERBAL STIMULI, ORAL AIRWAY REMOVED, MASK DECREASED TO 6 LITERS.
--- NOTE | 2016-12-12 14:23 | NUR ---
PT RETURNED TO FLOOR FROM PACU FOLLOWING COLONOSCOPY. ACCOMPANIED BY FRANCO REYNOLDS, RETURNED TO ROOM 113 AT 1348. PT AWAKE, ALERT, ORIENTED X 3. REPORT RECIEVED AT BEDSIDE FROM FRANCO REYNOLDS. PT DENIED PAIN. DENIED NEEDS.
--- NOTE | 2016-12-12 14:50 | NUR ---
CALLED TO SET UP PT CARE CONFERENCE WITH PT, CHILDREN AND SO. NO PHONE NUMBERS WILL ACCEPT MESSAGES. CONTINUED LOOKING AND FOUND PT LILIAM PHONE NUMBER ([phone]) CALLED AND SPOKE WITH HIM AND HE SAID HE COULD BE HERE FOR CONFERENCE AT NOON ON THRUSDAY 12/14/16. WILL CONT TO ATTEMPT TO CALL LELA.
--- NOTE | 2016-12-12 14:53 | NUR ---
PT PROVIDED WITH VANILLA ENSURE AND ICE WATER, DECLINED ANY OTHER PO INTAKE AT THIS TIME.
--- NOTE | 2016-12-12 15:30 | NUR ---
brittany and skin care done on patient. floated with one pillow undereach hip. call button in reach. no other needs at this time.
--- NOTE | 2016-12-12 15:45 | NUR ---
PATIENT WAS NPO ALL MORNING FOR COLONOSCOPY WITH BIOPSY. SHE IS REFUSING SOLID FOOD. SHE HAS A LONG HISTORY OF POOR INTAKE, MANY YEARS. SHE WILL DRINK ENSURE AND SHE LIKES BANANAS. SHE DOES NOT WANT TO HELP HERSELF BY EATING. IT IS BEST TO KEEP ENCOURAGING HER TO TAKE A BITE, THEN ANOTHER. SHE DOESN'T HAVE TO FINISH THE PLATE, BUT GET HER IN THE HABIT OF TAKING BITES. CONTINUE ENSURE TID FOR CALORIES AND ESPECIALLY PROTEIN. 3 BOTTLES OF ENSURE ENLIVE WILL PROVIDE 60 GRAMS OF PROTEIN. WILL CONTINUE TO FOLLOW.
--- NOTE | 2016-12-12 17:00 | NUR ---
HEENA AND SKIN CARE DONE ON PATIENT. TURNED ONTO RIGHT SIDE. PATIENT REFUSED ORAL CARE FOR THE 2ND TIME TODAY.
--- NOTE | 2016-12-12 17:04 | NUR ---
PER DR. FOX, PT MAY EAT WHATEVER SHE WISHES.
--- NOTE | 2016-12-12 17:08 | NUR ---
PT HAS DENTURES IN, UPPER. REFUSED ORAL CARE. PT WAS INCONTINENT OF URINE AND LIQUID STOOL. ASSISTED PT IN CLEANING UP, CHANGED CHUCKS, APPLIED BARRIER CREAM, AND POSITIONED PT ONTO RIGHT SIDE. PT REFUSED DINNER, AGREED TO ATTEMPT TO DRINK VANILLA ENSURE.
--- NOTE | 2016-12-12 17:22 | NUR ---
PT CONTINUES TO HAVE DIARRHEA, LIQUID, YELLOW. IS INCONTINENT OF URINE AND STOOL. HAD COLONOSCOPY WITH BIOPSY THIS AFTERNOON, RETURNED TO FLOOR WITH NEW ORDER FOR QUESTRAN FOR DIARRHEA. HAS STAGE 2 1 CM BY 1 CM PRESSURE ULCER TO SACRUM, DRESSING SOILED THIS EVEING, CHANGED BY THIS RN. DRESSING C/D/I. IVF IS INFUSING AT 50 CC/HR, AND IS TO BE D/C'D ONCE CURRENT BAG IS COMPLETE, PER DR. FOX. PT REMAINS WEAK, DID IN BED ACTIVITIES WITH OT/PT. TRANSFERS WITH 2 PERSON ASSIST WITH PIPPA. REQUIRED 3 PERSON ASSIST TO TRANSFER FROM BED TO STRETCHER, AND STRETCHER TO BED. PT WAS NPO UNTIL THIS AFTERNOON DUE TO COLONOSCOPY. MAY HAVE A REGULAR DIET, BUT HAS REFUSED ANY PO INTAKE EXCEPT VANILLA ENSURE AND WATER. TURNED Q 2 HOURS AND NEEDED. PT ALERT, SLOW TO RESPOND WITH SLIGHTLY SLURRED SPEECH PER BASELINE. ORIENTED TO SELF, ORIENTED TO EVENTS, DID NEED REORIENTATION TO PLACE, AND TO DATE THIS AFTERNOON. IS CURRENTLY ORIENTED X 3.
--- NOTE | 2016-12-12 20:10 | NUR ---
PT LAYING IN BED, AWAKE, APPEARED TO BE TAKING BLANKETS OFF AND LEANING TO ONE SIDE. PT STATED "I HAVE TO GET UP TO THE BATHROOM, AND YOU BETTER HURRY BECAUSE I HAVE TO GO." PT VOIDED IN BED MAURICE. SITUATED PT IN BED, PLACED DESITIN ON REDDENED AREA TO HEENA AND SACRAL AREA, PT REPORTS IT IS VERY PAINFUL IN THOSE AREAS. GAVE PT FRESH ICE WATER. PT SEEMS TO BE ALERT AND ORIENTED AT THIS TIME, BUT PLACED BED ALARM ON FOR SAFETY. CALL LIGHT IN REACH. NO FURTHER NEEDS AT THIS TIME.
--- NOTE | 2016-12-12 23:18 | NUR ---
PT RESTING QUIELTY, RR WNL AND UNALABORED. LIGHTS AND TV OFF IN ROOM.
--- NOTE | 2016-12-13 05:06 | NUR ---
FLUID BAG FINISHED. PT AWAKE, WATCHING TV. NO NEEDS AT THIS TIME.
--- NOTE | 2016-12-13 05:42 | NUR ---
PT HAD AN UNEVENTFUL NIGHT. INCONTINENT OF URINE X2 AND LOOSE MUSTARD COLORED STOOL X1 OVERNIGHT. DENIED PAIN. ALERT AND ORIENTED X4. REDNESS ON HEENA AREA AND BUTTOCKS REMAINS, DESITIN APPLIED LAST NIGHT, PT VERY TENDER IN THESE AREAS.
--- NOTE | 2016-12-13 06:53 | NUR ---
CALLED DR FOX REGARDING LOW BLOOD PRESSURE, NO NEW ORDERS AT THIS TIME.
--- NOTE | 2016-12-13 08:58 | NUR ---
PT AWAKE IN BED. FOOD SERVICE'S CLEANING PT UP AFTER INCONTINENT EPISODE. HEENA AREA AND BUTTOCKS REDDENED, LABIA VERY SWOLLEN. AREA CLEANED THOROUGHLY AND DESITIN APPLIED. PT REPOSITIONED. PT ALERT AND ORIENTED TO ALL. DENIES PAIN, NAUSEA, OR OTHER CONCERNS THIS AM. MULTIPLE OLD, DRIED SCABS TO ARMS AND LEGS. REFUSED BREAKFAST, GIVEN ENSURE. WATER AND ENSURE WITHIN REACH. BED ALARM ON.
--- NOTE | 2016-12-13 09:44 | NUR ---
PATIENT AWAKE IN BED. CHANGED ATTEND X2. RAISED UP IN BED. EMPTY GARBAGE. PICKED UP ROOM. FRESH ICE WATER. CHANGED GOWN. SAID WAS NOT A BREAKFAST EATER SO SHE DID NOT WANT BREAKFAST. CALL LIGHT IN REACH.
--- NOTE | 2016-12-13 11:30 | NUR ---
PT ATTENDS CHANGED, INCONTINENT OF LOOSE STOOL. DESITIN APPLIED TO HEENA AREA. PT PAINFUL WITH MOVEMENT IN BED. REFUSING TO EAT LUNCH. DRANK AN ENTIRE ENSURE. CALL LIGHT WITHIN REACH, CALLS APPROPRIATELY.
--- NOTE | 2016-12-13 11:42 | NUR ---
PATIENT IN BED CHANGED ATTEND, DRAW SHEET AND CHUK AND APPYLED DESATIN. FRESH ICE WATER. PATIENT REFUSED LUNCH. IS NOW IN ROOM. CALL LIGHT IN REACH.
--- NOTE | 2016-12-13 12:20 | NUR ---
CHECKED ON PATIENT SHE STATED SHE DID NOT WANT TO EAT SANDWICH AND DID NOT NEED TO BE CHANGED. CALL LIGHT IN REACH WILL CHECK BACK SOON.
--- NOTE | 2016-12-13 14:34 | NUR ---
PT RESTING IN BED, EYES CLOSED, RESP EVEN AND UNLABORED. PT AT A FEW BITES OF SOUP. ENSURE LEFT AT BEDSIDE.
--- NOTE | 2016-12-13 15:14 | NUR ---
PATIENT IN BED. TOOK LUNCH TRAY. CHECKED PATIENTS ATTENDS SHE WAS CLEAN, STILL HAD PLENTS OF DESITAN CREAM. TURNED PATIENT ON LEFT SIDE. FRESH ICE WATER. PATIENT SAID SHE ONLY LIKES THE STYROFOAM CUPS NOT THE PLASTIC WITH A REGULAR STRAW. PATIENT SAID SHE DID NOT NEED ANYTHING. HER CALL LIGHT IS IN REACH.
--- NOTE | 2016-12-13 16:28 | NUR ---
PT RESTED IN BED THROUGHOUT SHIFT. TURN Q2 WITH FREQUENT ATTEND CHANGES. CONT TO BE INCONTIENT OF LOOSE STOOL AND URINE. LABIA VERY RED AND SWOLLEN. DESITIN APPLIED WITH EACH ATTEND CHANGE. ALERT AND ORIENTED. DENIES PAIN OTHER THAN HEENA AREA. DENIES NAUSEA OR DIFFICULTY BREATHING. CALLS APPROPRIATELY.
--- NOTE | 2016-12-13 18:25 | NUR ---
PT AWAKE IN BED WATCHING TV. REFUSED DINNER, GIVEN ENSURE. SCHEDULED MEDS ADMINISTERED. DENIES NEEDS OR CONCERNS AT THIS TIME. CALL LIGHT WITHIN REACH.
--- NOTE | 2016-12-13 19:01 | NUR ---
PATIENT IS RESTING IN BED. JOSE RAUL JOHNSTON AND I CHANGED AND CLEANED UP PATIENT. SHE REFUSED DINNER BUT AGREED TO DRINKING AN ENSURE. PATIENT IS DOING OKAY AND HAS CALL LIGHT WITHIN REACH.
--- NOTE | 2016-12-13 20:00 | NUR ---
RECEIVED REPORT AT 1900. FOUND PT IN BED RESTING.
--- NOTE | 2016-12-13 22:00 | NUR ---
PT OVERALL SEEMS TO BE DOING BETTER. AT THIS TIME PT IS ALERT AND ORIENTED. PT IS COMPLAINING OF HER HEENA AREA BEING VERY SOAR. DESETIN PAST WAS APPLIED. V/S WNL.
--- NOTE | 2016-12-14 01:00 | NUR ---
PT AT THIS TIME IS SLEEPING.
--- NOTE | 2016-12-14 04:00 | NUR ---
PT PO INTAKE HAS BEEN POOR THIS SHIFT EVEN THOUGH SHE WAS ENCOURAGED TO DRINK FLUIDS. PT WANTED TO GET UP TO THE BATHROOM TO VOID. I TOLD HER THAT SHE WAS TOO WEAK TO STAND BUT PT INSISTED. WE LET HER TRY TO GET UP BUT SHE WAS UNABLE TO DO SO. I OFFERED HER A BED MAURICE BUT PT REFUSED AND SAID THAT SHE NO LONGER NEEDED TO VOID. WILL CONTINUE TO MONITOR AND WILL BLADDER SCAN HER WITH NEXT V/S.
--- NOTE | 2016-12-14 05:20 | NUR ---
PT OVERALL HAD AN UNEVENTFUL NIGHT. INTAKE AND OUTPUT HAVE NOT BEEN ADEQUATE. PT WAS ENCOURAGED TO DRINK MORE FLUIDS. PT REFUSED AT ONE POINT TO USE A BED MAURICE IN ORDER TO VOID. PT WILL BE BLADDER SCANNED WITH 0600 V/S. PT HAS BEEN ALERT AND ORIENTED THIS SHIFT SO FAR. V/S OVERALL WERE WNL SO FAR.
--- NOTE | 2016-12-14 07:05 | NUR ---
BEDSIDE HANDOFF REPORT RECEIVED FROM WOOD PATTERNMAKER RN. PT SLEEPING, LEFT UNDISTURBED.
--- NOTE | 2016-12-14 09:18 | NUR ---
PATIENT SLEEPING AT THIS TIME DID NOT DISTURB. UPDATED WITH BOURD.
--- NOTE | 2016-12-14 11:46 | NUR ---
PT RESTING IN BED. PT DENIES NEEDS AT THIS TIME. PT ENCOURAGED TO EAT LUNCH.
--- NOTE | 2016-12-14 12:08 | NUR ---
CARE CONFERENCE. IN ATTENDANCE IS DR. ERICKSON, P.T., O.T, CASE MANAGEMENT, AND SON SHARAD, DAUGHTER ON PHONE. DISCUSSED PLAN TO DISCHARGE TO NURSING FACILITY THIS WEEKEND. PT VOICING CONCERNS AND FEELING UPSET ABOUT DISCHARGING TO NURSING FACILITY.
--- NOTE | 2016-12-14 12:20 | NUR ---
CARE CONFERENCE ATTENDING: PT, HER SON SHARAD, AND HER DAUGHTER SHIRLENE BY PHONE. STAFF: DR FOX, MYSELF CASE MANAGEMENT, ESTEFANIA PT, DURAN OT, DURAN RN, AND [facility]. DISCUSSION LEAD BY DR FOX, DISCUSSED THE PROGRESS THE PT HAS MADE AND THE FACT THAT SHE IS NEEDING CONT SNF CARE FOR EXTENDED PERIOD OF TIME PER PT UP TO 8 + WKS. PHYSICAL THERAPY AND OT MENTIONED THAT THE PT IS REFUSING MOST OF THERAPY, IT WAS EXPLAINED TO HER THAT BECAUSE SHE IS REFUSING SHE IS BASICALLY CAUSING HERSELF TO NEED TO GO TO SNF. PT BECAME TEARFUL STATING " I GUESS I SHOULDN'T SAY NO ANYMORE". TALKED ABOUT THE VARIED OPTIONS AND SHE WANTS TO GO TO [facility] IF SHE HAS TO GO. SHE WAS AGAIN REINFORCED THAT SHE NEEDS TO PARTICIPATE IN HER THERAPY IF SHE EVER WANTS TO RETURN HOME. PT STATES UNDERSTANDING AND SAYS SHE WILL PARTICIPATE.
--- NOTE | 2016-12-14 12:21 | NUR ---
FRESH ICE WATER. CHANGED HER AND CLEANED HER UP. TOOK BLOOD PRESURE. TURNED HER TO HER RIGHT SIDE. TOOK VITALS. CALL LIGHT IN REACH.
--- NOTE | 2016-12-14 13:12 | NUR ---
PT RESTING IN BED. PT WITH POOR APPETITE, REFUSING LUNCH, DISCUSSED NEED TO INCREASE NUTRITION WITH PT, PT CONTINUES TO DECLINE LUNCH. PT DENIES OTHER NEEDS AT THIS TIME.
--- NOTE | 2016-12-14 14:34 | NUR ---
NURSES DURAN AND ARTURO WERE IN PATIENTS ROOM CHANGING AND CLEANING HER UP. PATIENT HAD A LARGE VOID. JOSE RAUL JOHNSTON TOOK PATIENTS VITALS. PATIENT STATES SHE WILL CALL IF SHE NEEDS ANYTHING. AND SON IN ROOM WITH HER. CALL LIGHT IN REACH.
--- NOTE | 2016-12-14 16:09 | NUR ---
FAXED CHART NOTES TO [facility] AFTER SPEAKING WITH MARIEL, THE PLAN IS FOR TOD TO GO TO [facility] TOMORROW. FAXED FACESHEET, ER NOTES, H AND P, PROG NOTES, OP NOTE, IMAGING, MEDS, LABS, AND PT AND OT EVALS AND NOTES TO [facility]
[2016-12-14] MEDS ORDERED: MAPAP500 M1 PO (16:12)
[2016-12-14] MEDS ORDERED: NICORETTE4 M2 BUCCAL (16:12)
[2016-12-14] MEDS ORDERED: CALCIUM CARBON650 MG PO (16:14)
--- NOTE | 2016-12-14 16:15 | NUR ---
PT RESTING IN BED. PT ASSISTED WITH ORDERING DINNER, PT WITH POOR APPETITE, ENCOURAGED TO PICK SMALL MEALS THAT SOUND MORE APPEALING. PT REQUIRES FREQUENT ENCOURAGEMENT AND EDUCATION ON DIET AND PARTICIPATION. PT DENIES OTHER NEEDS AT THIS TIME.
[2016-12-14] MEDS ORDERED: DESITIN57 GM TOP (16:16)
[2016-12-14] MEDS ORDERED: FOLIC ACID1 MG PO (16:16)
[2016-12-14] MEDS ORDERED: LEVOTHYROXINE25 MCG PO (16:16)
[2016-12-14] MEDS ORDERED: ONDANSETRON ODT4 MG PO (16:18)
[2016-12-14] MEDS ORDERED: LOPERAMIDE2 M1 PO (16:19)
[2016-12-14] MEDS ORDERED: KLOR-CON 1010 MEQ PO (16:20)
[2016-12-14] MEDS ORDERED: BUDESONIDE EC3 MG PO (16:24)
--- NOTE | 2016-12-14 18:04 | NUR ---
PT ALERT/ORIENTED. PT ON ROOM AIR, LUNG SOUNDS WITH RHONCHI, LOOSE COUGH, ENCOURAGE I/S. PT WITH POOR APPETITE, DRINKING QS, ENCOURAGE MEALS. PT CONTINUES TO BE INCONTINENT OF STOOL AND URINE, PERIAREA SWOLLEN AND REDDENED, DESITIN CREAM APPLIED. PT WORKED WITH PHYSICAL THERAPY, ABLE TO SIT AT EDGE OF BED, UNABLE TO STRAND. CARE CONFERENCE HELD TODAY, DISCUSSED GOING TO [facility] TOMORROW FOR REHAB, PT RESISTANT BUT AGREEABLE.
--- NOTE | 2016-12-14 20:00 | NUR ---
RECEIVED REPORT AT 1900. FOUND PT IN BED RESTING. PT SEEMS WITHDRAWN.
--- NOTE | 2016-12-14 22:00 | NUR ---
ALL LOBES ARE CLEAR BUT DIMINISHED, HEENA AREA IS STILL VERY RED AND SWOLLEN. PT STILL HAS POOR PO INTAKE. V/S ARE WNL. PT IS STILL VERY WEAK OVERALL. NO NEW ISSUES NOTED SO FAR.
--- NOTE | 2016-12-15 01:50 | NUR ---
PT IS RESTING IN BED AT THIS TIME.
--- NOTE | 2016-12-15 03:11 | NUR ---
PT IS SLEEPING AT THIS TIME.
--- NOTE | 2016-12-15 05:32 | NUR ---
PT OVERALL HAD A UNEVENTFUL NIGHT. PT SLEPT MOST OF THE NIGHT. V/S ARE WNL SO FAR. NO NEW ISSUES NOTED THIS SHIFT. PO INTAKE STILL NEEDS TO BE INCREASED BUT PT IS NOT MOTIVATED TO DO SO.
--- NOTE | 2016-12-15 07:00 | NUR ---
BEDSIDE HANDOFF REPORT RECEIVED FROM ADMINISTRATIVE NURSING SUPERVISOR RN. PT SLEEPING, LEFT UNDISTURBED.
--- NOTE | 2016-12-15 09:04 | NUR ---
PT ALERT/ORIENTED. PT LUNG SOUNDS WITH RHONCHI THROUGHOUT, ON ROOM AIR, LOOSE UNPRODUCTIVE COUGH, ENCOURAGED I/S. PT WITH POOR APPETITE, REFUSING TO EAT BREAKFAST, DRINKING ENSURE, DSICUSSED IMPORTANCE OF NUTRITION IN HEALING PROCESS, PT UNRECEPTIVE TO TEACHING. PT BOWEL TONEAS ACTIVE, LOOSE STOOL. INCONTINENT OF URINE, PERICARE PERFORMED, DESITIN APPLIED. CMS INTACT, PULSES PALPABLE AND STONG, WITHOUT EDEMA. PT DENIES OTHER NEEDS AT THIS TIME.
--- NOTE | 2016-12-15 12:27 | NUR ---
PT CONTINUES TO BE RESISTANT TO EATING. EDUCATION PROVIDED ABOUT THE NEED TO TAKE IN NOURISHMENT TO GET BETTER. PT AGREEABLE TO EAT [employer] S[employer], ASSISTED WITH ORDERING.
--- NOTE | 2016-12-15 12:34 | NUR ---
PATIENT IN BED AWAKE. CLEANED ROOM. TOOK VITALS. EMPTY GARBAGE. PATIENT DID NOT WANT BREAKFAST. CHANGED PATIENT SHE WAS WET IN THE BACK BUT DRY IN THE FRONT. PATIENT STATED SHE DID NOT NEED ANYTHING AT THIS TIME I TOLD HER I WOULD LET HER SLEEP FOR AN HOUR OR SO BEFORE BATHERING HER AGAIN
--- NOTE | 2016-12-15 13:50 | NUR ---
PT RESTING IN BED. PT REQUESTING NOT TO TAKE MEDICATIONS STATING "I WILL TAKE THEM WHEN I AM READY". DISCUSSED THAT THE MEDICATIONS ARE TO TREAT THE COLITIS AND WERE IMPORTANT TO TAKE. PT AGREEABLE TO TAKE. DISCUSSED PERSONAL BARRIER TO TREATMENT, PT VOICING THAT SHE DOES NOT WANT TO GO TO A NURSING FACILITY. THERAPEUTIC COMMUNICATION PROVIDED.
--- NOTE | 2016-12-15 17:56 | NUR ---
PT ALERT/ORIENTED. LUNG SOUNDS WITH RHONCHI THROUGHOUT, I/S AT BEDSIDE, ON ROOM AIR. PT CONTINUES TO HAVE POOR APPETITE, REFUSING TO EAT, WILL DRINK ENSURE. ENTOCORT BEGAN TODAY. PT CONTINUES TO HAVE LOOSE STOOL AND IS INCONTINENT OF URINE, DESITIN CREAM AND FREQUENT PERICARE.
--- NOTE | 2016-12-15 20:00 | NUR ---
RECEIVED REPORT AT 1900. FOUND PT IN BED SLEEPING.
--- NOTE | 2016-12-15 22:00 | NUR ---
ASSISTED FIELD TECHNICIAN WITH [facility]. DESITIN WAS APPLIED. PT STILL REFUSES TO EAT. ALL LOBES ARE DIMINISHED. PT DID NOT PUT MUCH EFFORT INTO DEEP BREATHING WHILE ASSESSING LUNG LOBES. PT IS STILL VERY WEAK. HEENA AREA IS LESS RED TONIGHT. OTHERWISE NO CHANGES IN THIS PT SO FAR.
--- NOTE | 2016-12-16 00:19 | NUR ---
PT IS SLEEPING AT THIS TIME.
--- NOTE | 2016-12-16 03:14 | NUR ---
PT HAS BEEN SLEEPING FOR A WHILE NOW. WILL REPOSITION PT.
--- NOTE | 2016-12-16 05:18 | NUR ---
PT HAD A GOOD NIGHT. PT HAS BEEN SLEEPING MOST OF THE NIGHT. PT STILL DOES NOT WANT TO EAT. PT IS MORE PLEASANT OVERALL. V/S ARE WNL, PT HAD BM X2 LAST BM WAS MORE FORMED. REDNESS IN HEENA AREA IS MUCH BETTER THIS SHIFT. DESITIN WAS APPLIED WITH EVERY BRIEF CHANGE. NO NEW ISSUES NOTED FOR THIS PT.
--- NOTE | 2016-12-16 07:00 | NUR ---
BEDSIDE HANDOFF REPORT RECEIVED FROM REINSTATEMENT CLERK RN. PT SLEEPING, LEFT UNDISTURBED.
--- NOTE | 2016-12-16 08:50 | NUR ---
PATIENT STATES SHE HAD A BEDBATH THIS MORNING.
--- NOTE | 2016-12-16 09:30 | NUR ---
PT RESTING IN BED. PT WITH IMPROVED APPETITE, ABLE TO EAT 10% OF BREAKFAST. PT LUNG SOUNDS CLEAR WITH RHONCHI TO LEFT UPPER LOBE, ON ROOM AIR, ENCOURAGE I/S. PT DENIES PAIN. BOWEL TONES ACTIVE, DENIES NAUSEA, CONTINUES TO HAVE LOOSE WATERY STOOL. PERICARE PERFORMED, LABIAL SWELLING IMPROVING, REDNESS IMPROVING, DESITIN CREAM APPLIED. PT WITHOUT IV ACCESS. PT DENIES OTHER NEEDS AT THIS TIME.
--- NOTE | 2016-12-16 14:45 | NUR ---
PT RESTING IN BED. PT DENIES PAIN. PT LUNG SOUNDS RHONCHI THROUGHOUT, EXPIRATORY WHEEZE TO LEFT SIDE, LOOSE COUGH, ENCOURAGED I/S. PT WITH POOR APPETITE, REFUSED LUNCH, ENSURE AT BEDSIDE. BOWEL TONES ACTIVE. PT DENIES NEEDS AT THIS TIME.
--- NOTE | 2016-12-16 17:37 | NUR ---
PT CONTNIUES TO HAVE POOR APPETITE. PT REFUSING TO EAT DINNER. PT PROVIDED WITH ENSURE, DRINKING.
--- NOTE | 2016-12-16 17:49 | NUR ---
PT WITH UNEVENTFUL DAY. PT CONTINUES TO HAVE POOR INTAKE, DRINKING ENSURE. PT LUNG SOUNDS WITH RHONCHI, ENCOURAGED I/S. PT INCONTINENT OF STOOL AND URINE, DESITIN CREAM AND FREQUENT PERICARE. PT ABLE TO STAND AT EDGE OF BED WITH PHYSICAL THERAPY.
--- NOTE | 2016-12-16 19:00 | NUR ---
BEDSIDE REPORT RECEIVED FROM OFFGOING NURSE DURAN. PT LYING IN BED AWAKE WATCHING TV, ASKS FOR ASSIST WITH THE REMOTE. DENIES OTHER NEEDS. CALL LIGHT WITHIN REACH.
--- NOTE | 2016-12-16 20:50 | NUR ---
PT ASSESSMENT COMPLETE. PT LYING IN BED AWAKE. DENIES PAIN OR NAUSEA. RHONCI PRESENT TO ALL LUNG DARLING, CLEAR WITH COUGH. PT REPORTS MUCOUS PRODUCTION. ABD DISTENDED. BT'S ACTIVE. DESITIN CREAM APPLIED WITH ATTENDS CHANGE, PT PULLED UP IN BED, DECLINES TO LAY ON SIDE. PT SHARES ABOUT HER DAUGHTER GETTING . WHEN ASKED ABOUT FURTHER NEEDS PT STATES "YOU COULD STAY HERE AND VISIT WITH ME". ASSURED PT STAFF WILL BE BACK. PT DENIES OTHER NEEDS, CALL LIGHT WITHIN REACH.
--- NOTE | 2016-12-16 23:20 | NUR ---
PT LYING IN BED AWAKE. REPORTS THAT HER ATTEND IS WET. STATES THAT HER PERIAREA IS "BURNING". PT STATES THAT SHE DID NOT CALL BECAUSE SHE "DIDN'T WANT TO BOTHER ANYONE". EDUCATION PROVIDED. PT AGREES TO USE HER CALL LIGHT. ATTENDS CHANGED, DESITIN APPLIED. PT TOLERATED WELL. STATES "MAYBE NOW I CAN GET SOME SLEEP". CALL LIGHT WITHIN REACH.
--- NOTE | 2016-12-17 00:57 | NUR ---
PT USES CALL LIGHT TO REPORT THAT HER ATTENDS ARE SOILED. PT CHANGED AND REPOSITIONED IN BED. TOLERATED WELL. PT DENIES OTHER NEEDS. CALL LIGHT WITHIN REACH.
--- NOTE | 2016-12-17 04:00 | NUR ---
PT RESTING IN BED WITH EYES CLOSED. RESPIRATIONS EVEN AND UNLABORED. PT APPEARS TO BE SLEEPING. CALL LIGHT WITHIN REACH.
--- NOTE | 2016-12-17 07:15 | NUR ---
BEDSIDE HANDOFF REPORT RECEIVED FROM HEAVY EQUIPMENT DIESEL MECHANIC RN. PT SLEEPING, LEFT UNDISTURBED.
--- NOTE | 2016-12-17 09:30 | NUR ---
PT RESTING IN BED. PT DENIES PAIN. PT LUNG SOUNDS CLEAR, RHONCHI NOTED TO LEFT LOWER LOBE, ENCOURAGED I/S AND COUGHING. PT BOWEL TONES ACTIVE, CONTINUES TO BE INCONTINENT OF STOOL AND URINE, PERICARE PERFORMED, DESITIN CREAM APPLIED. PT WITH POOR APPETITE, REFUSING BREAKFAST, PROVIDED ENSURE. PT DENIES OTHER NEEDS AT THIS TIME.
--- NOTE | 2016-12-17 10:42 | NUR ---
MD TO BEDSIDE TO EVALUATE PT. PT ENCOURAGED TO SPEND MORE TIME IN CHAIR TODAY. DISCUSSED PLAN TO DISCHARGE TO NURSING FACILITY, PT VOICING SHE WANT TO GO HOME.
--- NOTE | 2016-12-17 13:30 | NUR ---
PT RESTING IN BED. PT DENIES NEEDS AT THIS TIME. PT WITH POOR APPETITE, REFUSED TO EAT LUNCH.
--- NOTE | 2016-12-17 15:33 | NUR ---
PT SITTING IN CHAIR. 2PA WITH PHYSICAL THERAPY. PT REQUESTING TO RETURN TO BED, ENCOURAGED TO SIT UP UNTIL 1600, AGREEABLE. PT DENIES OTHER NEEDS AT THIS TIME.
--- NOTE | 2016-12-17 16:09 | NUR ---
PT ASSISTED TO BED. PT WITH LOOSE STOOL, PERICARE WITH DESITIN CREAM APPLIED. PT DENIES OTHER NEEDS AT THIS TIME.
--- NOTE | 2016-12-17 17:58 | NUR ---
PT ALERT/ORIENTED. PT ON ROOM AIR, LUNG SOUNDS WITH RHONCHI, LOOSE COUGH. 2PA STAND PIVOT TO CHAIR, SAT UP FOR 30 MINUTES. REGUALR DIET, POOR APPETITE, TRIED TO EAT DINNER. CONTINUES TO HAVE INCONTINENCE OF URINE AND STOOL, STOOL BECOMING THICKER, DESITIN CREAM.
--- NOTE | 2016-12-17 19:05 | NUR ---
BEDSIDE REPORT RECEIVED FROM OFFGOING NURSE. PT RESTING WITH EYES CLOSED. CALL LIGHT WITHIN REACH.
--- NOTE | 2016-12-17 21:30 | NUR ---
PT RESTING WITH EYES CLOSED. APPEARS TO BE SLEEPING. CALL LIGHT WITHIN REACH.
--- NOTE | 2016-12-17 22:45 | NUR ---
PT ASSESSMENT COMPLETE. ATTENDS CHANGED. DESITIN APPLIED TO REDDENED HEENA AREA. PT REPOSITIONED. DENIES OTHER NEEDS. CALL LIGHT WITHIN REACH.
--- NOTE | 2016-12-18 00:42 | NUR ---
PT RESTING IN BED WITH EYES CLOSED. COUGHING SERVICE SUPERVISOR LOOKS INTO ROOM. PT NEVER OPENS HER EYES. APPEARS TO BE SLEEPING. CALL LIGHT WITHIN REACH.
--- NOTE | 2016-12-18 02:20 | NUR ---
PT LYING IN BED WITH EYES OPEN. ATTENDS SOILED. PT ABLE TO ROLL HERSELF SIDE TO SIDE TO CHANGE ATTENDS. DESITIN APPLIED. PT LYING ON R SIDE. DENIES OTHER NEEDS. ASSESSMENT COMPLETED, UNCHANGED FROM PREVIOUS. CALL LIGHT WITHIN PT REACH.
--- NOTE | 2016-12-18 04:44 | NUR ---
PT SLEPT MOST OF SHIFT. LOOSE OCCASIONAL PRODUCTIVE COUGH. LOOSE/ MUCOUS STOOL. INCONTINENCE, ATTENDS IN PLACE. DESITIN TO EXCORIATED HEENA AREA. 2 PA. LOW APPETITE, SUPPLEMENT WITH ENSURE. NO IV ACCESS.
--- NOTE | 2016-12-18 08:58 | NUR ---
PT SITTING UP IN RECLINER, CONSUMED 60% OF BREAKFAST THIS AM. REPORTS NO PAIN , SHE SAID THAT "I FEEL PRETTY GOOD"
--- NOTE | 2016-12-18 09:55 | NUR ---
pt back to bed 2 person assist, pt changed for incont of bladder and bowel.
--- NOTE | 2016-12-18 11:54 | NUR ---
FAXED UPDATED CLINICALS TO [facility], THESE INCLUDED FACESHEET, NURSING/MD NOTES AND PT NOTES, PER [facility] REQ
--- NOTE | 2016-12-18 12:45 | NUR ---
[facility] STATED THEY WERE UNABLE TO TAKE THIS PT THEY WERE WORRIED ABOUT HER ABILITY TO PARTICIPATE IN PT AND OT. PT WAS SPOKEN WITH AGAIN ABOUT PARTICIPATING IN THESE AND AGAIN SAID SHE WOULD PARTICIPATE.
--- NOTE | 2016-12-18 13:40 | NUR ---
PAPERWORK INCLUDING FACESHEET, H AND P, PROG NOTES, PT AND OT EVAL AND NOTES SENT TO [facility] FOR AUTH FOR SWING BED. AWAITING AUTH.
--- NOTE | 2016-12-18 16:58 | NUR ---
IN TO ASSESS PT AND DISCUSS PLAN OF CARE
--- NOTE | 2016-12-18 17:12 | NUR ---
PT HAS BEEN UP TO RECLINER TWO PERSON ASSIST. TOELRATING 50-60% OF MEALS TODAY. V/S STABLE ON R.A., SHE IS MORE COOPERATIVE WITH PLAN OF CARE. INCONTINENT IF BOWEL AND BLADDER, STOOL HAS MORE CONSISTANCY TODAY STILL LOOSE, BU TNOT WATERY. SHE HAS REPORTED NO PAIN OVER SHIFT, NO NAUSEA
--- NOTE | 2016-12-18 19:15 | NUR ---
BEDSIDE REPORT RECEIVED FROM OFFGOING RN. PT SITTING IN BED WITH EYES OPEN. DENIES NEEDS AT THIS TIME. CALL LIGHT WITHIN REACH.
--- NOTE | 2016-12-18 22:50 | NUR ---
PT ASSESSMENT COMPLETE. RHONCI NOTED TO ALL LUNG DARLING. PT ENCOURAGED TO DEEP BREATH AND COUGH. RHONCI DO NOT CLEAR WITH COUGH. ABD REMAINS DISTENDED, NONTENDER. BT'S ACTIVE. PT HAVING SOFT STOOL, REMAINS INCONTINENT. ATTENDS IN PLACE. PT DENIES NEEDS AT THIS TIME. CALL LIGHT WITHIN REACH.
--- NOTE | 2016-12-19 00:18 | NUR ---
pt utilizes call light, states that she needs to be changed. new attends placed, desitin cream applied. pt repositioned and scooted up in bed. pt tolerated well. warm blanket provided. call light within reach.
--- NOTE | 2016-12-19 02:09 | NUR ---
PT RESTING IN BED WITH EYES CLOSED. RESPIRATIONS EVEN AND UNLABORED. PT APPEARS TO BE SLEEPING. CALL LIGHT WITHIN REACH.
--- NOTE | 2016-12-19 04:56 | NUR ---
PT CALLING FOR HELP, WONDERING WHERE HER IS. PT REMINDED THAT SHE WAS IN HOSPITAL. PT ASSESSMENT COMPLETE, ATTENDS CHANGED. SOFT BM PRESENT. BARRIER CREAM APPLIED TO RED HEENA AREA. PT DENIES OTHER NEEDS AT THIS TIME. CALL LIGHT WITHIN REACH.
--- NOTE | 2016-12-19 05:37 | NUR ---
PT SLEEPING OFF AND ON THIS SHIFT. PAIN WELL CONTROLLED. INCONTINENT, CONTINUES WITH SOFT TO LOOSE STOOL. BM X 4 THIS SHIFT. ENCOURAGE INTAKE, SUPPLEMENT WITH ENSURE. 2 PA. NO IV ACCESS.
--- NOTE | 2016-12-19 07:50 | NUR ---
PATIENT REFUSED BREAKFAST. ASSISTED PATIENT UP TO CHAIR WITH FEET ELEVATED. CALL BUTTON IN REACH. PATIENT DRINKING AN ENSURE. REMINDED PATIENT TO CALL WHEN SHE WOULD LIKE TO GET BACK INTO BED. PATIENT WASHED HANDS AND FACE. REFUSED ANY ORAL CARE AND SHOWER.
--- NOTE | 2016-12-19 09:00 | NUR ---
PATIENT PUSHED CALL BUTTON TO GO BACK INTO BED. 2 PERSON ASSIST WITH WALKER. PATIENT REFUSED SHOWER AGAIN.BED BATH DONE. HEENA, SKIN CARE DONE. LINENES CHANGED. HAIR COMBED. CALL BUTTON IN REACH SIDE RAILS UP. WARM BLANKET GIVEN. NO OTHER NEEDS AT THIS TIME.
--- NOTE | 2016-12-19 11:05 | NUR ---
PATIENT LAYING IN BED TALKING TO ON THE PHONE. FRESH ICE WATER GIVEN. CALL BUTTON IN REACH. REPOSTIONED TO LEFT SIDE. NO OTHER NEEDS AT THIS TIME.
--- NOTE | 2016-12-19 12:14 | NUR ---
TALKED WITH PT AND SHE WOULD LIKE TO GO TO [facility]. CALLED LEFT MESSAGE FOR [facility] THEIR ADMITTING PERSON TO CALL ME, THAT WAS AT 1009. CALLED HIM BACK AND HE SAID THEY DID HAVE A BED AND TO FAX HIM INFORMATION ON HER. FAXED FACESHEET, ER NOTES, H AND P, PROG NOTES, LABS, AND PT AND OT NOTES. AWAITING TO HEAR FROM THEM. TALKED WITH MINISTERIO FROM [facility] AND SHE STATED TO LET HER KNOW WHEREVER THE PT ENDS UP GOING TO.
[2016-12-19] MEDS ORDERED: LOPERAMIDE2 MG PO (12:43)
--- NOTE | 2017-01-04 17:56 | OR ---
[facility] [address], [place] [address] Signed DATE OF PROCEDURE: 12/12/16 PREOPERATIVE DIAGNOSIS Chronic alcoholism with ascites and profound diarrhea without evidence of an infectious etiology. POSTOPERATIVE DIAGNOSIS: Normal-appearing colon overall. PROCEDURE PERFORMED: Total colonoscopy to cecum with multiple biopsies. SURGEON: Mag Wick MD. ANESTHESIA: Intravenous sedation Propofol infusion (Mag Lowry CRNA). INDICATION This 56-year-old white woman is a chronic alcoholic and was admitted by Dr. Shukla on December 05. She is noted to have ascites and profound and persistent diarrhea. She has been treated with Loperamide. Stool studies have been negative. She has nutritional deficiencies and electrolyte abnormalities, which have been corrected. Loperamide has been used to control her diarrhea, which was only marginally beneficial. She has undergone colonoscopy approximately [address] Andrew Calvo showing small polyps from report. She is admitted at this time to undergo colonoscopy to assess for possible lymp hocytic or collagenous colitis or other etiologies of her persistent diarrhea. She understands the risks of bleeding, infection, and perforation related to colonoscopy and wished to proceed. FINDINGS Complete colonoscopy was undertaken to the cecum. Good sedation was provided by Propofol infusional technique. There was no obvious neoplasm. I did not see diverticulitis nor polyps. There was no sign of obvious colitis. Mucosa overall looked normal though was slightly edematous, probably related to hypoprotein emia. Biopsies are pending to affirm or refute the possibility of lymphocytic colitis or collagenous colitis. PROCEDURE IN DETAIL The patient was brought to the endoscopy suite and placed in lateral decubitus position, given intravenous sedation with full cardiopulmonary monitoring by the staffing clerk. A digital rectal examination was undertaken. The perineum had marked excoriation of the skin and erythema related to her diarrhea problem. An Olympus video colonoscope was passed in the rectum and manipulated throughout the colon ultimately intubating the cecum itself. The appendiceal orifice appeared to be identified. The mucosa appeared to be reasonably normal though mildly edematous. Biopsies were obtained. The scope was carefully withdrawn and examination throughout showed no sign of diverticular formation Electronically Signed By: MAG WICK MD 01/04/17 1756 PATIENT NAME: TOD FRANCES OPERATIVE REPORT DATE OF : 64 PHYSICIAN: MAG WICK MD REPORT #: [id number] REPORT IS CONFIDENTIAL AND NOT TO BE RELEASED WITHOUT AUTHORIZATION [facility] [address] [place] [id number] Signed or obvious colitis or cancer. No polyps. Biopsies were taken throughout the length of the colon including the rectum. Retroflex view was normal as well. The scope was removed and the patient was taken recovery room in good condition. CONCLUDING DIAGNOSIS No clear etiology of her diarrhea based on endoscopic findings. Biopsies for collagenous colitis are pending. PLAN We would recommend initiation of Questran 4 g p.o. q.i.d. in addition to the Loperamide already initiated. If collagenous colitis or lymphocytic colitis is noted, then Budesonide 9 mg p.o. daily would be appropriate tapering down to 3 mg a day. MD WILLIE Graham/Sosa /[id number] cc: Ana Luisa Momin PA-C Electronically Signed By: MAG WICK MD 01/04/17 1756 PATIENT NAME: TOD FRANCES OPERATIVE REPORT DATE OF : 64 PHYSICIAN: MAG WICK MD REPORT #: [id number] REPORT IS CONFIDENTIAL AND NOT TO BE RELEASED WITHOUT AUTHORIZATION
== END 2016-12-19 12:50 | disposition still patient (30) | DRG 682 ==
LOC: ED 20:46 → MS 22:30 → CCU 22:30 → MS 12-09 11:52
PROVIDERS: Surgery; ADMIT Internal Medicine
PROC: 0DBH8ZX Excision of Cecum, Via Natural or Artificial Opening Endoscopic, Diagnostic (ICD-10-PCS; 2016-12-12)
PROC: 0DBP8ZX Excision of Rectum, Via Natural or Artificial Opening Endoscopic, Diagnostic (ICD-10-PCS; 2016-12-12)
PROC: 0DBN8ZX Excision of Sigmoid Colon, Via Natural or Artificial Opening Endoscopic, Diagnostic (ICD-10-PCS; 2016-12-12)
PROC: 0DBL8ZX Excision of Transverse Colon, Via Natural or Artificial Opening Endoscopic, Diagnostic (ICD-10-PCS; 2016-12-12)
PROC: 0DBF8ZX Excision of Right Large Intestine, Via Natural or Artificial Opening Endoscopic, Diagnostic (ICD-10-PCS; 2016-12-12)
PROC: 0DBG8ZX Excision of Left Large Intestine, Via Natural or Artificial Opening Endoscopic, Diagnostic (ICD-10-PCS; principal; 2016-12-12 12:00)
DX: N17.9 Acute kidney failure, unspecified (principal); E43 Unspecified severe protein-calorie malnutrition; E87.1 Hypo-osmolality and hyponatremia; N39.0 Urinary tract infection, site not specified; E86.0 Dehydration; K52.839 Microscopic colitis, unspecified; E83.51 Hypocalcemia; D52.0 Dietary folate deficiency anemia; E87.6 Hypokalemia; I95.9 Hypotension, unspecified; E03.9 Hypothyroidism, unspecified; E83.39 Other disorders of phosphorus metabolism; K70.31 Alcoholic cirrhosis of liver with ascites; F10.20 Alcohol dependence, uncomplicated; S63.501A Unspecified sprain of right wrist, initial encounter; W19.XXXA Unspecified fall, initial encounter; I10 Essential (primary) hypertension; Z87.891 Personal history of nicotine dependence
CPT/HCPCS: 00810; 29125; 36415; 36430; 51702; 51798; 71010; 73110; 73200; 74177; 80048; 80053; 80069; 80076; 81001; 82274; 82306; 82570; 82607; 82705; 82728; 82746; 83520; 83540; 83630; 83690; 83735; 83930; 83986; 83993; 84100; 84133; 84134; 84155; 84165; 84300; 84302; 84439; 84443; 84466; 85025; 85045; 85651; 86038; 86431; 86850; 86900; 86901; 86920; 87045; 87046; 87077; 87088; 87177; 87186; 87205; 87206; 87209; 87493; 93005; 93010; 96374; 97110; 97162; 97165; 97530; 97535; 99285; 99406; G0480; J0610; J0696; J1650; J2405; J2704; J3411; J3475; J7060; J7120; P9016; Q9967

== ENCOUNTER 2016-12-19 12:53 | Inpatient (IN) | payer OTHER ==
[~2016-12-19] VITALS: Ht 152.4 cm; Wt 47.6 kg
[~2016-12-19 12:53] MED LIST changes: +BUDESONIDE EC3 MG PO; +CALCIUM CARBON650 MG PO; +CHLORDIAZEPOXID25 MG PO; +DESITIN57 GM TOP; +FOLIC ACID1 MG PO; +KLOR-CON 1010 MEQ PO; +LEVOTHYROXINE25 MCG PO; +LOPERAMIDE2 M1 PO; +LOPERAMIDE2 MG PO; +MAG-OXIDE400 MG PO; +MAPAP500 M1 PO; +METOPROLOL SUC100 MG PO; +MIRTAZAPINE15 MG PO; +MIRTAZAPINE30 MG PO; +NICORETTE4 M2 BUCCAL; +ONDANSETRON ODT4 MG PO
--- NOTE | 2016-12-19 14:49 | NUR ---
PT WORKED WITH PHYSICAL THERAPY THIS AFTERNOON. ABLE TO STAND AND TAKE SIDE STEP WITH 2PA AND FWW.
--- NOTE | 2016-12-19 16:46 | NUR ---
MED REC COMPLETE WHEN PATIENT WAS IN-PATIENT STATUS.
--- NOTE | 2016-12-19 17:54 | NUR ---
PT CHANGED TO SWING BED. UP TO CHAIR AT MEAL TIME. ENCOURAGE PO INTAKE. INCONTINENT. CALLS APPROPRIATLEY TO BE CHANGED. WORKS WITH PT. ENCOURAGE TO STAND AND PIVOT/SIDE STEP TO CHAIR OR BED. RESISTANT TO ADLs. NO IV ACCESS.
--- NOTE | 2016-12-19 19:05 | NUR ---
BEDSIDE REPORT RECEIVED FROM OFFGOING NURSE. PT LYING IN BED AWAKE, DENIES NEEDS. CALL LIGHT WITHIN REACH.
--- NOTE | 2016-12-19 22:15 | NUR ---
PT ASSESSMENT COMPLETED. PT CONTINUES TO HAVE LOOSE, OCCASSIONALLY PODUCTIVE COUGH. LUNG SOUNDS CLEAR UPON ASSESSMENT. PT REMAINS INCONTINENT, ATTENDS CHANGED FOR SM SOFT BM. DESITIN APPLIED.
--- NOTE | 2016-12-19 23:50 | NUR ---
SCD'S PUT ON PATIENT PER NURSE.
--- NOTE | 2016-12-20 02:49 | NUR ---
PT CALLS PROCESS CONTROL OPERATOR INTO ROOM. REQUESTS TO HAVE SCD'S TAKEN OFF. PT REMOVED SCD X 1 ON HER OWN. PT DENIES OTHER NEEDS. CALL LIGHT WITHIN REACH.
--- NOTE | 2016-12-20 05:18 | NUR ---
SWING BED. PT SLEPT MOST OF SHIFT. PAIN WELL CONTROLLED. LOOSE, PRODUCTIVE, OCCASIONAL COUGH. INCONTINENT; ATTENDS IN PLACE. CONTINUES TO HAVE SOFT STOOL. ENCOURAGE PO INTAKE. SUPPLEMENT MEALS WITH ENSURE. ENCOURAGE TO PIVOT TRANSFER/SIDE STEP TO CHAIR. 2 PA.
--- NOTE | 2016-12-20 08:10 | NUR ---
patient attends clean and dry. turned patient onto left side. fresh ice water given. daughter in room. patient tearful and happy to see her daughter. call button in reach. bed alarm on. no other needs at this time.
--- NOTE | 2016-12-20 08:45 | NUR ---
PT RESTING IN BED. PT DENIES PAIN. PT LUNG SOUNDS CLEAR, LOOSE COUGH, ON ROOM AIR. PT ASSISTED WITH ORDERING BREAKFAST. PT WITH SMALL LOOSE STOOL, PERICARE WITH DESITIN. PT DENIES NEEDS AT THIS TIME. DAUGHTER AT BEDSIDE.
--- NOTE | 2016-12-20 11:44 | NUR ---
PATIENT UP IN BED. TOOK VITALS. HOYERED HER UP IN CHAIR. COMPLETE LINEN CHANGE. CLENED ROOM. EMPTYED GARBAGE. WENT BACK AND ASSISTED PATIENT BACK TO BED AND CHANGED HER. SET HER UP FOR LUNCH. FRESH ICE WATER. CALL LIGHT IN REACH.
--- NOTE | 2016-12-20 13:06 | NUR ---
PT INCONTINENT OF STOOL AND URINE, PERICARE PERFORMED, DESITIN CREAM APPLIED. PT AT 10% OF LUNCH, DRANK ENSURE. PT RESTING IN BED, FAMILY AT BEDSIDE.
--- NOTE | 2016-12-20 14:03 | NUR ---
PT HAS LOTS OF FAMILY IN, LAYING IN BED WATCHING TV. DID NOT SEEM TO WANT TO VISIT, DID NOT LIKE ME CALLING HER "FRIEND". SEEMS TO BE CONCERNED ABOUT THE MONEY HE FEELS IT IS COSTING FOR HER CARE HERE. STAFF EXPRESSED TO ME THEIR CONCERN ABOUT HER LACK OF MOTIVATION ABOUT HELPING HERSELF. I CAN SEE THAT HAPPENING. GOD BLESS, WILL FOLLOW NEEDED
--- NOTE | 2016-12-20 16:38 | NUR ---
PATIENT AWAKE IN BED. REPOSTIONED HER IN BED. FRESH ICE WATER TOOK LUNCH TRAY. ORDERED HER DINNER. HELPED HER CALL HER . CHANGED HER ATTEND. PATIENT HAS CALL LIGHT IN REACH.
--- NOTE | 2016-12-20 17:45 | NUR ---
PT RESTING IN BED, PT EATING DINNER, IMRPOVED APPETITE. PT INCONTINENT OF STOOL AND URINE, PERICARE PERFORMED, DESITIN CREAM APPLIED. PT DENIES NEEDS AT THIS TIME.
--- NOTE | 2016-12-20 18:23 | NUR ---
PT HAD MUCH BETTER DAY. APPETITE IMPROVING, ATE 50% OF BREAKFAST AND DINNER. PT CONTINUES TO HAVE SOFT STOOL, IMPROVING IN CONSISTENCY AND AMOUNT. PT ON ROOM AIR. WORKED WITH PHYSICAL THERAPY, STRENGTH IMPROVING, 2PA.
--- NOTE | 2016-12-20 20:20 | NUR ---
IN TO SEE PT, PT AWAKE WATCHING TV. ASSESSMENT COMPLETE. NO FURTHER NEEDS AT THIS TIME. CALL LIGHT WITH IN REACH.
--- NOTE | 2016-12-20 22:22 | NUR ---
IN TO CHECK ON PT, PT APPEARS TO BE SLEEPING. NO APPARENT DISTRESS NOTED. CALL LIGHT WITH IN REACH.
--- NOTE | 2016-12-21 00:41 | NUR ---
IN TO CHECK ON PT, PT APPEARS TO BE SLEEPING. NO APPARENT DISTRESS NOTED. CALL LIGHT WITH IN REACH.
--- NOTE | 2016-12-21 02:33 | NUR ---
IN TO CHECK ON PT, PT AWAKE. ATTENDS CHANGED. INCONT OF STOOL. MEDIUM LIQUID SOFT STOOL. HEENA-AREA REDDENED, SOME AREAS OF OPEN BLEEDING SKIN. DESITIN APPLIED. NO FURTHER NEEDS AT THIS TIME. CALL LIGHT WITH IN PLACE.
--- NOTE | 2016-12-21 04:15 | NUR ---
PT HAS HAD UNEVENTFUL SHIFT, SLEPT WELL. PT INCONT. OF URINE AND STOOL. BM X1, PUDDING TEXTURE NOTED. NO COMPLAINTS OF PAIN DURING SHIFT. AAO X3.
--- NOTE | 2016-12-21 07:20 | NUR ---
BEDSIDE HANDOFF REPORT RECEIVED FROM LINE COOK RN. PT RESTING IN BED. PT INCONTINENT OF STOOL AND URINE, PERICARE PERFORMED, DESITIN CREAM APPLIED. PT DENIES NEEDS AT THIS TIME.
--- NOTE | 2016-12-21 08:00 | NUR ---
PT RESTING IN BED. PT ALERT/ORIENTED. PT ON ROOM AIR, LUNG SOUNDS WITH RHONCHI THROUGHOUT, ENCOURAGED COUGH, DEEP BREATHING. PT DENIES PAIN. PT TOLERATING LOW FIBER DIET, APPETITE IMPROVING. PT ASKING QUESTIONS ABOUT GOALS OF HOSPITAL STAY, DISCUSSED SWING BED AND GOALS. PT WITHOUT IV ACCESS. PT DENIES NEEDS AT THIS TIME.
--- NOTE | 2016-12-21 12:49 | NUR ---
PT COMPLAINT OF HEADACHE, REQUESTING PAIN MEDICATION. PT GIVEN 500 MG TYLENOL. PT RESTIGN IN BED, EATING LUNCH. PT DENIES OTHER NEEDS AT THIS TIME.
--- NOTE | 2016-12-21 15:30 | NUR ---
PT RESTING IN BED. PT ASSISTED WITH MAKING PHONE CALL. PT DENIES NEEDS AT THIS TIME.
--- NOTE | 2016-12-21 16:35 | NUR ---
PATIENT AWAKE IN CHAIR. HELPED PUT PATIENT BACK IN BED. SET HER UP FOR LUNCH. CHANGED HER. PATIENT IS DOING REALLY WELL. STILL PUTTING CREAM ON HER REAR. PATIENT HAS CALL LIGHT IN REACH.
--- NOTE | 2016-12-21 18:03 | NUR ---
PT HAD UNEVENTFUL DAY. PT ON ROOM AIR, LUNG SOUNDS WITH RHONCHI. PT TOLERATING REGULAR DIET, POOR APPETITE BUT IMRPOVING. PT SAT IN CHAIR, WORKED WITH PHYSICAL THERAPY. PT CONTINUES TO BE INCONTINENT OF STOOL AND URINE, PERICARE WITH DESITIN CREAM.
--- NOTE | 2016-12-21 19:32 | NUR ---
IN TO SEE PT, PT STATES IT HAS BEEN AN "OKAY" DAY. PT IN BED WATCHING TV. ASSESSMENT COMPLETED. WATER AT BEDSIDE. NO FURTHER NEEDS AT THIS TIME. CALL LIGHT WITH IN REACH.
--- NOTE | 2016-12-21 23:53 | NUR ---
IN TO CHECK ON PT, PT APPEARS TO BE SLEEPING. RR EVEN AND UNLABORED. CALL LIGHT WITH IN REACH.
--- NOTE | 2016-12-22 01:49 | NUR ---
IN TO CHECK ON PT, PT APPEARS TO BE SLEEPING. NO APPARENT DISTRESS NOTED. ALL SIDERAILS UP. CALL LIGHT WITH IN REACH.
--- NOTE | 2016-12-22 04:50 | NUR ---
PT RESTED WELL DURING SHIFT. CONTINUES TO BE INCONTINENT TO STOOL AND URINE. STOOL TEXTURE IMPROVING. HEENA-CARE WITH DESITIN CREAM. NO COMPLAINTS OF PAIN. PT ON RA. AAO X3, PLEASANT DEMEANOR.
--- NOTE | 2016-12-22 06:42 | NUR ---
IN TO CHECK ON PT, PT AWAKE. AM MEDICATIONS GIVEN PER ORDERS. PT STATES SHE RESTED WELL. NO FURTHER NEEDS AT THIS TIME. CALL LIGHT IN REACH.
--- NOTE | 2016-12-22 07:41 | NUR ---
RECIVED BEDSIDE REPORT FROM FRANCO BUENROSTRO. PT IN BED SLEEPING, BREATHING EVEN AND UNLABORED.
--- NOTE | 2016-12-22 10:20 | NUR ---
PT AWAKE AND ALERT IN BED. REFUSED SHOWER THIS AM, STATED SHE HAD A BATH YESTERDAY AND SHE DID NOT WANT ANOTHER. WILL REAPPROCH LATER IN SHIFT. PT TOLERATED AM MEDS WELL. CHANGED X1. PT DECLINED TO GET UP IN CHAIR AT THIS TIME. PT WILL WORK WITH PHYSICAL THERAPY LATER IN SHIFT.
--- NOTE | 2016-12-22 13:48 | NUR ---
PT REPORTED TO OCCUPATIONAL THERAPY THAT HER RIGHT HAND IS HURTING. PT STATES "IT ONLY HURTS WHEN I MOVE IT". PT STATES PAIN IS CENTERED ON BACK OF HAND. NO REDNESS, SWELLING, DISCOLORATION, OR NEW DEFORMITIES. NON-TENDER ON PALPATION. PT GIVEN ICE PACK AND REPOSITIONED IN BED.
--- NOTE | 2016-12-22 15:05 | NUR ---
GOT A SMILE AND A CHUCKLE FROM PT TODAY-MAKING HEADWAY!!! FAMILY VISITING, EXTENDED A BLESSING SHE THANKED ME. WILL CONTINUE TO FOLLOW
--- NOTE | 2016-12-22 18:11 | NUR ---
PHYSICAL THERAPY HELP ME GET PATIENT INTO SHOWER.
--- NOTE | 2016-12-22 19:29 | NUR ---
PT UP WALKING IN ROOM WITH PHYSICAL THERAPY. UP TO SHOWER WITH SHOWER CHAIR. SAT ON TOILET AND VOIDED. NO BM THIS SHIFT. NO COMPLAINTS OF PAIN THIS SHIFT.
--- NOTE | 2016-12-22 19:46 | NUR ---
RECIEVED REPORT FROM DAY SHIFT NURSE. PT RESTING IN BED ON L SIDE. PT STATED SHE IS AWRARE WHEN SHE HAS BEEN INCONT. I INSTRUCTED PT TO USE CALL RENDON WHEN SHE IS WET. PT DENIES NEEDS AT THIS TIME. CALL RENDON IN REACH.
--- NOTE | 2016-12-22 20:49 | NUR ---
PT IS ALERT, IN GOOD SPIRITS, SHE IS TURNING AND POSITIONING SELF IN BED NOW. ATTENDS IS DRY. DENIES ANY NEEDS, WATCHING TV. CALL LIGHT IN EASY REACH.
--- NOTE | 2016-12-23 00:30 | NUR ---
PT IS SLEEPING SOUNDLY, INC CARE GIVEN, DENIES ANY NEEDS, WARM BLANKET FOR COMFORT. CALL LIGHT IN EASY REACH.
--- NOTE | 2016-12-23 06:30 | NUR ---
ONE PERSON ASSIST TO AMBULATE INTO BATHROOM FOR AM CARE AND TO VOID, IN GOOD SPIRITS, STATES SHE SLEPT VERY WELL. SITTING UP WAITING FOR BREAKFAST.
--- NOTE | 2016-12-23 09:39 | NUR ---
PT REPORTS A "GOOD NIGHT". DISCUSSED PLAN OF CARE AND GOAL OF THE DAY. PT STATES GOAL IS TO EAT MORE, PT STATED SHE DID NOT EAT MUCH AT BREAKFAST, BUT DID DRINK AN ENSURE.
--- NOTE | 2016-12-23 13:55 | NUR ---
PT RESTING IN BED WITH EYES OPEN. PT APPEARS BORED, ASKING ABOUT HOW TO LEAVE IF SHE WANTS TO. ADVISED PT THAT LEAVING AGAIST [facility] IS VERY UNSAFE AND HAS MANY RAMIFICATIONS. PT VERBALIZED UNDERSTANDING OF THE RISKS AND STATED THAT SHE WOULD NOT LEAVE AMA. RN OFFERED ACTIVITIES TO ENGAGE PT, SHE DECLINED ALL INTERVENTIONS.
--- NOTE | 2016-12-23 18:22 | NUR ---
PT PARTIALLY MET GOALS OF CARE, CONSUMED PART OF MEAL, DRANK 2 ENSURE SHAKES. LARGE BM THIS SHIFT. PT GETTING BORED BY EXTENDED STAY.
--- NOTE | 2016-12-23 19:36 | NUR ---
PATIENT GOT COMPLETE BED BATH DONE BY NIGHTSHIFT.
--- NOTE | 2016-12-23 20:10 | NUR ---
WOKE BRIEFLY FROM NAP FOR ASSESSMENT, DENIES ANY NEEDS, STATES SHE IS COMFORTABLE.
--- NOTE | 2016-12-23 22:03 | NUR ---
RECIEVED REPORT FROM LENNOX GAMEZ.
--- NOTE | 2016-12-23 23:53 | NUR ---
PT RESTING IN BED. PT INCONT. OF STOOL AND URINE. HEENA CARE PERFORMED, BRIEF CHANGED. OFFERED TO ASSIST WITH REPOSITIONING, PT REFUSED AND STATES SHE CAN REPOSITION HERSELF. PT DENIES FURTHER NEEDS, CALL RENDON IN REACH.
--- NOTE | 2016-12-24 02:33 | NUR ---
PT SLEEPING. CALL RENDON IN REACH.
--- NOTE | 2016-12-24 03:56 | NUR ---
PT RESTING IN BED. PT INCONT OF STOOL AND URINE. HEENA CARE PERFORMED, APPLIED DESITIN TO EXCORIATED BOTTOM, BRIEF CHANGED. PT IS ALERT AND ORIENTED. EDUCATED PT TO USE HER CALL LIGHT WHEN SHE IS INCONT. PT STATES SHE KNOWS WHEN SHE IS INCONT. EDUCATED HER THAT IT IS IMPORTANT TO PROTECT HER SKIN. PT DENIES FURTHER NEEDS. CALL RENDON IN REACH.
--- NOTE | 2016-12-24 05:48 | NUR ---
PT SLEPT MOST OF THE NIGHT. SHE WAS INCONT. OF STOOL A FEW TIMES. PT STATES SHE KNOWS WHEN SHE GOES, BUT STILL DOES NOT USE HER CALL LIGHT TO INFORM STAFF. PT HERE FOR REHAB, PLAN IS TO GO TO ASSISTED LIVING.
--- NOTE | 2016-12-24 08:17 | NUR ---
PT USED CALL LIGHT TO INFORM US THAT SHE WAS ON THE FLOOR. TWO NURSES AND THREE CNAS RESPONDED. PT WAS ON FLOOR NEXT TO BED, WAS ASSISTED BACK TO BED, VITALS WERE TAKEN, AND NURSES ASSESSED PT FOR INJURIES; PT HAD SMALL SKIN TEAR ON RIGHT ELBOW. PT IS BACK IN BED RESTING SAFELY WORKING ON EATING BREAKFAST, WITH BED ALARM ON.
--- NOTE | 2016-12-24 08:25 | NUR ---
THIS RN NOTIFIED OF PT EXIT BED AND FELL. MD NOTIFIED, PT ASSESSED HAS ONE SMALL SKIN TEAR AT RIGHT ELBOW. ALLYVEN DREESING TO RIGHT ELBOW.
--- NOTE | 2016-12-24 09:55 | NUR ---
patient was resting when i went to check on her, she had a rough morning and she seems to be in better spirts now, she was watching a movie and didnt need me to bring her anything.
--- NOTE | 2016-12-24 11:15 | NUR ---
PT UP TO BATHROOM ONE PERSON ASSIST WITH FWW, GAIT UNSTEADY. PT VOIDED AND BM, PT WANTED TO GET BACK IN BED RATHER THAN STAY UP IN RECLINER
--- NOTE | 2016-12-24 17:29 | NUR ---
PT HAS BEEN UP ONE PERSON ASSIST WITH FWW TO BATHROOM. BM TODAY, VOIDING WELL WNL. POOR APPETITE, DRINKS ENSURE WITH MEALS. REFUSED TO WORK WITH PHYSICAL THERAPY THIS AM. SHE REPORTS NO PAIN. NO NAUSEA.
--- NOTE | 2016-12-24 19:32 | NUR ---
RECIEVED REPORT FROM DAY SHIFT NURSE. PT RESTING IN BED. PT DENIES NEEDS AT THIS TIME. CALL RENDON IN REACH.
--- NOTE | 2016-12-24 21:30 | NUR ---
PT CHECKED FOR EPISODE OF INCONTINENCE, FOUND DRY. PT POSITIONED ON R SIDE. BED ALARM INITIATED. PT STATES SHE KNOWS TO CALL IF SHE NEEDS ANYTHING. PT IS ALERT AND ORIENTED. PT DENIES NEEDS AT THIS TIME. CALL RENDON IN REACH.
--- NOTE | 2016-12-24 23:49 | NUR ---
PT SLEEPING. CALL LIGHT IN REACH. BED ALARM ON.
--- NOTE | 2016-12-25 03:39 | NUR ---
ASSISTED PT TO BATHROOM. PT WAS INCONTINENT. CHANGED BRIEF, PUT ON PULL-UPS. PT STATES SHE IS ALLERGIC TO THE WHITE PULL UPS BUT SHE DOES NOT WANT TO CHANGE THEM. I NOTICED ON THE WHITE BOARD "NO WHITE PULL-UPS" AND INSISTED CHANGING THEM, BUT PT REFUSED. APPLIED BARRIER CREAM TO BOTTOM. PT DENIES FURTHER NEEDS. CALL RENDON IN REACH. BED ALARM ON.
--- NOTE | 2016-12-25 05:02 | NUR ---
PT SLEPT ALL NIGHT. SHE GOT UP A FEW TIMES TO VOID. SHE WAS INCONTINENT X 1 OF URINE. EXCORIATION ON BOTTOM IMPROVING WITH DESITIN. NEED ANOTHER TUBE FROM PHARMACY. PT DOES WELL WITH SBA AND WALKER.
--- NOTE | 2016-12-25 07:41 | NUR ---
PT RESTING IN BED EYES CLOSED RR EVEN. ALERT TO RN IN ROOM
--- NOTE | 2016-12-25 12:03 | NUR ---
SAID NO SHOWER TODAY BUT TOMMOROW WILL.
--- NOTE | 2016-12-25 14:51 | NUR ---
PT UP WALKING WITH AID OF Harmony MAC. SHE SAID HELLO, AND DECIDED TO VISIT HER NEIBOR IN THE NEXT TO HER. GOOD IMPROVMENT, GOD BLESS. WILL CONTINUE TO FOLLOW
--- NOTE | 2016-12-25 15:52 | NUR ---
WHEN AND GOT 3 WARM BLANKETS FOR PATIENT.
--- NOTE | 2016-12-25 17:13 | NUR ---
PT RESTING IN BED ALERT AND ORIENTED. VOICED INTEREST IN DINNER TONIGHT. REPORTS NO PAIN OR NAUSEA.
--- NOTE | 2016-12-25 17:14 | NUR ---
PT WORKED WITH PHYSICAL THERAPY TWICE TODAY AMBUALTING IN HALLS ONE PERSON ASSIST. SHE HAS HAD GOOD URINE OUT. INCREASED DIETARY INTAKE TODAY. PT HAS REPORTED NO PAIN OR NAUSEA. SHE HAS BEEN COOPERATIVE WITH HER CARE PLAN TODAY
--- NOTE | 2016-12-25 19:15 | NUR ---
RECIEVED REPORT FROM DAY SHIFT.
--- NOTE | 2016-12-25 19:36 | NUR ---
PT RESTING IN BED. TOILETING OFFERED. CALL RENDON IN REACH. BED ALARM ON.
--- NOTE | 2016-12-25 22:23 | NUR ---
PT RESTING IN BED. BOTTOM BLEACHER ASSISTED PT WITH BRIEF CHANGE. PT HAD EPISODE OF URINARY INCONTINENCE. PT DENIES NEEDS. CALL RENDON IN REACH. BED ALARM ON.
--- NOTE | 2016-12-26 00:21 | NUR ---
ASSISTED PT TO BATHROOM. PT INCONT OF URINE AND CONT/INCONT OF STOOL. CHANGED BRIEF, ASSISTED WITH PERICARE. APPLIED BARRIER CREAM TO BOTTOM. PT BACK TO BED REPOSITIONED ON R SIDE. PT DENIES FURTHER NEEDS. ENCOURAGED PT TO USE CALL LIGHT WHICH IS IN REACH. BED ALARM ON.
--- NOTE | 2016-12-26 04:01 | NUR ---
PT SLEEPING. CALL RENDON IN REACH. BED ALARM ON.
--- NOTE | 2016-12-26 06:29 | NUR ---
PT HAD AN UNEVENTFUL NIGHT. ONE EPISODE OF URINARY INCONTINENCE. PT WOKE UP IN GOOD SPIRITS. WANTS TO REST IN BED. SHE WOULD LIKE A SHOWER TODAY. APPEARS TO BE EXCITED FOR THE DAY.
--- NOTE | 2016-12-26 06:30 | NUR ---
PT RESTING IN BED. STATES SHE WOULD LIKE TO GET UP AND SIT OUT AT THE NURSE'S STATION WITH EVERYONE. OFFERED TO ASSIST HER TO THE CHAIR, SHE REFUSED. TOILETING OFFERED. PT DENIES FURTHER NEEDS. CALL RENDON IN REACH.
--- NOTE | 2016-12-26 09:31 | NUR ---
PT UP WITH PHYSICAL THERAPY AT THIS TIME
--- NOTE | 2016-12-26 10:20 | NUR ---
PT IS LYING IN BED SAFELY WITH CALL LIGHT IN REACH AND BED ALARM ON. PT DOES NOT WANT TO SHOWER TODAY BUT AGREED TO SHOWER TOMORROW WILL NOTIFY NURSE AND PASS ON IN REPORT. PT DID NOT NEED ANYTHING ELSE AT THE MOMENT
--- NOTE | 2016-12-26 10:56 | NUR ---
PT UP WITH PHYSICAL THERAPY THIS AM THEN REFUSED TO SHOWER AFTER WHEN MACHINE TOOL REBUILDER ASKED
--- NOTE | 2016-12-26 12:21 | NUR ---
RELATIONSHIP SEEMS TO BE BUILDING WITH PT. SHE WELCOMED ME IN, SAID CAYDEN. SHE MENTIONED THAT SHE IS READY TO GO HOME. SHE TOLD ME THAT SHE HAD BEEN WALKING TODAY, AND IT FELT GOOD. PT ENJOYED VISITING THE PT IN THE RM NEXT TO HER-THEY ARE FRIENDS. EXTENDED A BLESSING, WILL FOLLOW NEEDED
--- NOTE | 2016-12-26 13:32 | NUR ---
PT UP AMBUALTING IN HALLS AT THIS TIME WITH PHYSICAL THERAPY
--- NOTE | 2016-12-26 15:09 | NUR ---
PT OUT TO AMBULATE IN HALLS, PT WAS INTERESTED IN A WHEELCHAIR RIDE OUT TO FRONT OF HOSPITAL FOR A CHANGE OF VIEW.
--- NOTE | 2016-12-26 17:58 | NUR ---
PT HAS BEEN UP WITH PHYSICAL THERAPY TWICE, ALSO UP WITH STAFF. SHOWERED TODAY. ONE PERSON STANDBY ASSIST. COOPERATIVE WITH CARE PLAN TODAY.
--- NOTE | 2016-12-26 18:08 | NUR ---
PT USED BATHROOM AND RETURNED TO BED PT IS NOW EATING DINNER AND DID NOT NEED ANYTHING ELSE AT THE MOMENT
--- NOTE | 2016-12-26 20:40 | NUR ---
PT LAYING IN BED, FLAT AFFECT, ANSWERS QUESTIONS ONLY, NOT VERY TALKATIVE. PT IS IN NO APPARENT DISTRESS. HAS NO NEEDS AT THIS TIME. FRESH ICE WATER GIVEN. CALL LIGHT IN REACH.
--- NOTE | 2016-12-27 01:22 | NUR ---
pt has been sleeping majority of shift. lights and tv off in room, eyes closed, rr wnl and unlabored.
--- NOTE | 2016-12-27 05:37 | NUR ---
PT SLEPT MAJORITY OF SHIFT. AMBULATED TO RESTROOM WITH SBA AND FWW, TOLERATED WELL. PT ALERT AND ORIENTED X4. NO NEW CHANGES OVERNIGHT. USES CALL LIGHT APPROPRIATLY.
--- NOTE | 2016-12-27 09:03 | NUR ---
Patient given am meds, patient states "I really want to get out of here today" denies other needs.
--- NOTE | 2016-12-27 09:22 | NUR ---
PATIENT AWAKE IN CHAIR. CLEANED UP ROOM. COMPLETE LINEN CHANGE. FRESH ICE WATER. GOT PAIENT AND ENSURE. PATIENT REFUSED SHOWER BUT WE WILL CHECK BACK LATER. EMPTYED GARBAGE. CALL LIGHT IN REACH.
--- NOTE | 2016-12-27 10:04 | NUR ---
PROVIDED PATIENT WITH 4 BOTTLES OF VANILLA ENSURE ENLIVE TO TAKE HOME. ALSO PROVIDED COUPONS FOR ENSURE ENLIVE. REMINDED HER TO DRINK 2-3 EACH DAY AT HOME. SHE SAID SHE WILL NEED TO GET SOME MORE. I SAID ITS IMPORTANT FOR HER TO DRINK THESE FOR ENERGY. SHE APPRECIATED ME BRINGING THEM TO HER.
--- NOTE | 2016-12-27 10:58 | NUR ---
Patient sitting in chair watching tv. Chair alarm in place. Patient has call light in reach.
[2016-12-27] MEDS ORDERED: BUDESONIDE EC3 MG PO (11:14)
--- NOTE | 2016-12-27 12:25 | NUR ---
PT DRESSED AND GETTING READY TO BE DC'D TODAY. VERY FRIENDLY, THANKED ME FOR STOPPING AND ALLOWED ME TO PRAY FOR HER. GOD BLESS HER
--- NOTE | 2016-12-27 12:35 | NUR ---
PATIENT DRESSED AND READY TO LEAVE. WAITING ON PATIENT'S SIGNIFICAT OTHER TO MANAGER DIVERSITY PATIENT.
--- NOTE | 2016-12-27 13:01 | NUR ---
PATIENT SITTING AT DESK WAITING FOR A RIDE HOME.
--- NOTE | 2016-12-27 14:05 | NUR ---
FAXED CHART NOTES TO [facility] INCLUDING FACESHEET H AND P, DC SUMMARY, PACKET, PT EVAL AND NOTES, OT ALSO. ORDER FOR HOME HEALTH. TALKED WITH LAURA ABOUT THIS PT.
== END 2016-12-27 13:20 | disposition home or self-care (01) | DRG 391 ==
LOC: MS 12:53
PROVIDERS: ADMIT Internal Medicine
DX: K52.839 Microscopic colitis, unspecified (principal); E43 Unspecified severe protein-calorie malnutrition; R26.2 Difficulty in walking, not elsewhere classified; E03.9 Hypothyroidism, unspecified; D52.8 Other folate deficiency anemias; K70.30 Alcoholic cirrhosis of liver without ascites; F10.10 Alcohol abuse, uncomplicated; F41.9 Anxiety disorder, unspecified; Z91.81 History of falling
CPT/HCPCS: 97110; 97116; 97161; 97162; 97165; 97530; 97535

== ENCOUNTER 2017-08-10 16:28 | Inpatient (IN) | payer OTHER ==
[~2017-08-10] VITALS: Ht 152.4 cm; Wt 46.2 kg
--- OUTSIDE RECORDS SUMMARY | ~2017-08-10 | XMS | Clinical Summary ---
Demographics + + + | Address | [address] | | | [place] [address] | + + + | Home Phone | | + + + | Preferred Language | Unknown | + + + | Marital Status | | + + + | Mormon Affiliation | Unknown | + + + | Race | Unknown | + + + | Ethnic Group | Unknown | + + + Author + + + | Author | [facility] | + + + | Organization | [facility] | + + + | Address | Unknown | + + + | Phone | Unavailable | + + + Support + + +---------+ + | Name | Relationship | Address | Phone | + + +---------+ + | Contact,No | ECON | Unknown | | + + +---------+ + Care Team Providers + +------+ + | Care Order Processor Name | Role | Phone | + +------+ + PP | Unavailable | + +------+ + Allergies Not on File Current Medications Not on file Active Problems Not on file Social History + +-------+ +--------+------+ | Tobacco Use | Types | Packs/Day | Years | Date | | | | | Used | | + +-------+ +--------+------+ | Never Assessed | | | | | + +-------+ +--------+------+ + + + | Sex Assigned at | Date Recorded | | | | + + + | Not on file | | + + + Plan of Treatment + + + + + | Health Maintenance | Due Date | Last Done | Comments | + + + + + | Vaccine: | | | | | Dtap/Tdap/Td (1 - | 1 | | | | Tdap) | | | | + + + + + | Cervical Cancer | | | | | Screening (Pap) | 3 | | | + + + + + | Breast Cancer | | | | | Screening | 2 | | | | (Mammogram) | | | | + + + + + | Colon Cancer | | | | | Screening | 2 | | | | (Colonoscopy) | | | | + + + + + | Vaccine: Influenza | | | | | (Season Ended) | 8 | | | + + + + + Results Not on filefrom Last 3 Months Insurance + +--------+ +------+-------+ + | Payer | Benefi | Subscriber | Type | Phone | Address | | | t Plan | ID | | | | | | / | | | | | | | Group | | | | | + +--------+ +------+-------+ + | MEDICAID | [employer] | xxxxxxxx | | | [address] | | | [place] | | | | [place] | | | [place] | | | | [phone] | | | [employer] SALESPERSON | | | | | + +--------+ +------+-------+ + + +--------+ +--------+ + + | Guarantor Name | Accoun | Relation to | Date | Phone | Billing Address | | | t Type | Patient | of | | | | | | | | | | + +--------+ +--------+ + + | TOD DOWELL | Person | Self | [birth year] | Home: | [address] | | | al/Fam | | 1960 | [phone] | [place] [address] | | | hernandez | | | [phone] | | + +--------+ +--------+ + +"
--- OUTSIDE RECORDS SUMMARY | ~2017-08-10 | XMS | Clinical Summary ---
Demographics + + + | Address | [address] | | | [place] [address] | + + + | Home Phone | | + + + | Preferred Language | Unknown | + + + | Marital Status | Single | + + + | Anabaptism Affiliation | Unknown | + + + | Race | Unknown | + + + | Ethnic Group | Unknown | + + + Author + + + | Author | [facility] | | | and [place] | + + + | Organization | [facility] | | | and [place] | + + + | Address | Unknown | + + + | Phone | Unavailable | + + + Support + + + + + | Name | Relationship | Address | Phone | + + + + + | Carlos Garcia | ECON | [address] | | | | | [place] | | | | | [phone] | | + + + + + Care Team Providers + +------+ + | Care Experience Planning Strategist Name | Role | Phone | + +------+ + | Solomon Arce MD | PP | Unavailable | + +------+ + Allergies No Known Allergies Current Medications + + +-------+---------+------+------+-------+ | Prescription | Sig. | Disp. | Refills | Star | End | Statu | | | | | | t | Date | s | | | | | | Date | | | + + +-------+---------+------+------+-------+ | desvenlafaxine | Take 50 mg by mouth | | | | | Activ | | (PRISTIQ) 50 mg ER | Daily. | | | | | e | | tablet | | | | | | | + + +-------+---------+------+------+-------+ | metoprolol | Take 50 mg by mouth | | | | | Activ | | succinate | Daily. | | | | | e | | (TOPROL-XL) 50 mg 24 | | | | | | | | hr tablet | | | | | | | + + +-------+---------+------+------+-------+ | traMADol (ULTRAM) | Take 50 mg by mouth. | | | | | Activ | | 50 mg tablet | | | | | | e | + + +-------+---------+------+------+-------+ | Ascorbic Acid | Take 100 mg by mouth | | | | | Activ | | (VITAMIN C) 100 MG | Daily. | | | | | e | | tablet | | | | | | | + + +-------+---------+------+------+-------+ | thiamine (VITAMIN | Take 100 mg by mouth | | | | | Activ | | B-1) 100 mg tablet | Daily. | | | | | e | + + +-------+---------+------+------+-------+ | MAGNESIUM OXIDE PO | Take 400 mg by mouth | | | | | Activ | | | 2 times daily. | | | | | e | + + +-------+---------+------+------+-------+ | cholecalciferol | Take 1,000 Units by | | | | | Activ | | (VITAMIN D-3) 1,000 | mouth Daily. | | | | | e | | units tablet | | | | | | | + + +-------+---------+------+------+-------+ Active Problems + + + | Problem | Noted Date | + + + | Lipoma of skin and subcutaneous tissue of face | 06/08/2014 | + + + | Alcoholism (HCC) | 05/12/2014 | + + + | Beriberi | 05/12/2014 | + + + | Tension headache | 05/12/2014 | + + + | Depression | 05/12/2014 | + + + Family History + + +------+ + | Medical History | Relation | Name | Comments | + + +------+ + | Cancer | Mother | | colong and mets to lung and stomach | + + +------+ + + +------+ + + | Relation | Name | Status | Comments | + +------+ + + | Mother | | | | + +------+ + + Social History + + + +--------+------+ | Tobacco Use | Types | Packs/Day | Years | Date | | | | | Used | | + + + +--------+------+ | Current Every Day | Cigarettes | 2 | | | | Smoker | | | | | + + + +--------+------+ + +---+---+---+ | Smokeless Tobacco: | | | | | Never Used | | | | + +---+---+---+ + + + | Sex Assigned at | Date Recorded | | | | + + + | Not on file | | + + + Last Filed Vital Signs + + + + | Vital Sign | Reading | Time Taken | + + + + | Blood Pressure | - | - | + + + + | Pulse | 68 | 05/13/2014 1457 PST | + + + + | Temperature | - | - | + + + + | Respiratory Rate | - | - | + + + + | Oxygen Saturation | 96% | 05/13/20141456 PST | + + + + | Inhaled Oxygen | - | - | | Concentration | | | + + + + | Weight | 48.5 kg (107 lb) | 05/13/20141456 PST | + + + + | Height | 152.4 cm (5') | 05/13/20141456 PST | + + + + | Body Mass Index | 20.9 | 05/13/20141456 PST | + + + + Plan of Treatment + + + + + | Health Maintenance | Due Date | Last Done | Comments | + + + + + | Hepatitis C | | | | | Screening | 2 | | | + + + + + | Vaccine: | | | | | Dtap/Tdap/Td (1 - | 1 | | | | Tdap) | | | | + + + + + | Vaccine: | | | | | Pneumococcal | 1 | | | | (PPSV23 only) Medium | | | | | Risk (1 of 1 - | | | | | PPSV23) | | | | + + + + + | CERVICAL CANCER | | | | | SCREENING (PAP EVERY | 3 | | | | 3 YEARS 21-64 ) | | | | + + + + + | BREAST CANCER | | | | | SCREENING (MAMM Q2 | 2 | | | | YEARS 50-74) | | | | + + + + + | COLON CANCER | | | | | SCREENING | 2 | | | | (COLONOSCOPY EVERY | | | | | 10 YEARS 50-) | | | | + + + + + | Vaccine: Influenza | | | | | (Season Ended) | 8 | | | + + + + + Results Not on filefrom Last 3 Months Insurance + +--------+ +--------+ +---------+ | Payer | Benefi | Subscriber | Type | Phone | Address | | | t Plan | ID | | | | | | / | | | | | | | Group | | | | | + +--------+ +--------+ +---------+ | [employer] | [employer] | [phone] | Medica | [phone] | | | MEDICAID HMO | HEALTH | | id | [id number] | | | | [place] | | | | | | | [place] | | | | | + +--------+ +--------+ +---------+ + +--------+ +--------+ + + | Guarantor Name | Accoun | Relation to | Date | Phone | Billing Address | | | t Type | Patient | of | | | | | | | | | | + +--------+ +--------+ + + | TOD FRANCES | Person | Self | [birth year] | Home: | [address] | | [place] | [place] | | 1959 | [phone] | [place] [address] | | | hernandez | | | [phone] | | + +--------+ +--------+ + +"
--- OUTSIDE RECORDS SUMMARY | ~2017-08-10 | XMS | Clinical Summary ---
Demographics + + + | Address | [address] | | | [place] [address] | + + + | Home Phone | | + + + | Preferred Language | Unknown | + + + | Marital Status | | + + + | Moravian Affiliation | Unknown | + + + | Race | Unknown | + + + | Ethnic Group | Unknown | + + + Author + + + | Author | [facility] | + + + | Organization | [facility] | + + + | Address | Unknown | + + + | Phone | Unavailable | + + + Support + + +---------+ + | Name | Relationship | Address | Phone | + + +---------+ + | Contact,No | ECON | Unknown | | + + +---------+ + Care Team Providers + +------+ + | Care Certified Residential Medication Aide Name | Role | Phone | + [...] | JESUS MANUEL | | | | [phone] | | | ODD BUNDLE WORKER | | | | | + +--------+ [...] | Self | [birth year] | Home: | [address] | | | al/Fam | | 1960 | [phone] | [place] [address] | | | hernandez | | | [phone] | | + +--------+ +--------+ + +"
--- OUTSIDE RECORDS SUMMARY | ~2017-08-10 | XMS | Clinical Summary ---
Demographics + + + | Address | [address] | | | [place] [address] | + + + | Home Phone | | + + + | Preferred Language | Unknown | + + + | Marital Status | Single | + + + | Mormonism Affiliation | Unknown | + + + | Race | Unknown | + + + | Ethnic Group | Unknown | + + + Author + + + | Author | [facility] | | | and [place] | + + + | Organization | [facility] | | | and [place] | + + + | Address | Unknown | + + + | Phone | Unavailable | + + + Support + + + + + | Name | Relationship | Address | Phone | + + + + + | Carlos Garcia | ECON | [address] | | | | | [place] | | | | | [phone] | | + + + + + Care Team Providers + +------+ + | Care Communications Analyst Name | Role | Phone | + [...] | Self | [birth year] | Home: | [address] | | [place] | [place] | | 1959 | [phone] | [place] [address] | | | hernandez | | | [phone] | | + +--------+ +--------+ + +"
--- OUTSIDE RECORDS SUMMARY | ~2017-08-10 | XMS | Clinical Summary ---
Demographics + + + | Address | [address] | | | [place] [address] | + + + | Home Phone | | + + + | Preferred Language | Unknown | + + + | Marital Status | Single | + + + | Rastafarian Affiliation | Unknown | + + + | Race | Unknown | + + + | Ethnic Group | Unknown | + + + Author + + + | Author | [facility] | | | and [place] | + + + | Organization | [facility] | | | and [place] | + + + | Address | Unknown | + + + | Phone | Unavailable | + + + Support + + + + + | Name | Relationship | Address | Phone | + + + + + | Carlos Garcia | ECON | [address] | | | | | [place] | | | | | [address] | | + + + + + Care Team Providers + +------+ + | Care Pharmacologist Name | Role | Phone | + [...] | Self | [birth year] | Home: | [address] | | [place] | [place] | | 1959 | [phone] | [place] [address] | | | henrandez | | | [phone] | | + +--------+ +--------+ + +"
--- OUTSIDE RECORDS SUMMARY | ~2017-08-10 | XMS | Clinical Summary ---
Demographics + + + | Address | [address] | | | [place] [address] | + + + | Home Phone | | + + + | Preferred Language | Unknown | + + + | Marital Status | | + + + | Advent Affiliation | Unknown | + + + | Race | Unknown | + + + | Ethnic Group | Unknown | + + + Author + + + | Author | [facility] | + + + | Organization | [facility] | + + + | Address | Unknown | + + + | Phone | Unavailable | + + + Support + + +---------+ + | Name | Relationship | Address | Phone | + + +---------+ + | Contact,No | ECON | Unknown | | + + +---------+ + Care Team Providers + +------+ + | Care Grants Administrator Name | Role | Phone | + [...] | JESUS MANUEL | | | | [phone] | | | BB SHOT PACKER | | | | | + +--------+ [...] | Self | [birth year] | Home: | [address] | | | al/Fam | | 1960 | [phone] | [place] [address] | | | hernandez | | | [phone] | | + +--------+ +--------+ + +"
--- NOTE | 2017-08-10 22:51 | EKG ---
[facility] [address] [place] [address] Signed Poor data quality, interpretation may be adversely affected Sinus rhythm with premature supraventricular complexes Left axis deviation Low voltage QRS Cannot rule out Anteroseptal infarct (cited on or before 05-DEC-2016) Abnormal ECG When compared with ECG of 05-DEC-2016 21:55, premature supraventricular complexes are now present T wave inversion no longer evident in Inferior leads Confirmed by JEANE FOX MD ([id number]) on 08/10/2017 10:51:00 PM Electronically Signed By: JEANE FXO MD 08/10/17 2251 PATIENT NAME: TOD FRANCES Electrocardiogram DATE OF : 64 PHYSICIAN: JEANE FOX MD REPORT #: [id number] REPORT IS CONFIDENTIAL AND NOT TO BE RELEASED WITHOUT AUTHORIZATION
[2017-08-13] MEDS ORDERED: LEVOTHYROXINE75 MCG PO (09:15)
[2017-08-13] MEDS ORDERED: MAG-OXIDE400 MG PO (11:55)
[2017-08-13] MEDS ORDERED: VITAMIN B-1100 MG PO (12:56)
[2017-08-14] MEDS ORDERED: NICORETTE4 M2 BUCCAL (16:01)
[2017-08-14] MEDS ORDERED: TUMS ULTRA400 MG PO (16:10)
[2017-08-14] MEDS ORDERED: LOPERAMIDE2 MG PO (16:11)
[2017-08-14] MEDS ORDERED: BUDESONIDE EC3 MG PO (16:11)
[2017-08-14] MEDS ORDERED: FOLIC ACID1 MG PO (16:11)
[2017-08-14] MEDS ORDERED: VITAMIN D31000 UNI1 PO (16:12)
[2017-08-14] MEDS ORDERED: CHOLESTYRAMINE P4 GM PO (16:13)
== END 2017-08-15 11:10 | disposition home or self-care (01) | DRG 392 ==
LOC: ED 16:28 → CCU 19:40 → MS 08-12 13:30
PROVIDERS: ADMIT Internal Medicine
DX: K52.9 Noninfective gastroenteritis and colitis, unspecified (principal); E87.1 Hypo-osmolality and hyponatremia; E46 Unspecified protein-calorie malnutrition; F10.20 Alcohol dependence, uncomplicated; K70.31 Alcoholic cirrhosis of liver with ascites; E83.51 Hypocalcemia; E83.42 Hypomagnesemia; E03.8 Other specified hypothyroidism; F17.210 Nicotine dependence, cigarettes, uncomplicated; E87.6 Hypokalemia; Z91.19 Patient's noncompliance with other medical treatment and regimen
CPT/HCPCS: 36415; 76700; 80048; 80053; 82306; 82607; 82728; 82746; 83540; 83735; 83930; 84425; 84439; 84443; 84466; 84484; 85025; 85045; 85610; 93005; 93010; 96374; 97110; 97116; 97162; 97165; 99285; J0610; J1650; J3475; J3480; J7030

== ENCOUNTER 2017-09-10 17:40 | Emergency (ER) | payer OTHER ==
[~2017-09-10] VITALS: Ht 152.4 cm; Wt 46.2 kg
[~2017-09-10 17:40] MED LIST changes: +CHOLESTYRAMINE P4 GM PO; +LEVOTHYROXINE75 MCG PO; +TUMS ULTRA400 MG PO
== END 2017-09-10 20:39 | disposition home or self-care (01) ==
LOC: ED 17:40
DX: R60.0 Localized edema (principal); K74.60 Unspecified cirrhosis of liver; Z79.899 Other long term (current) drug therapy
CPT/HCPCS: 80053; 81001; 85025; 85610; 85730; 99283; G0480

== ENCOUNTER 2017-10-04 15:23 | Inpatient (IN) | payer OTHER ==
[~2017-10-04] VITALS: Ht 152.4 cm; Wt 49.9 kg
--- NOTE | 2017-10-04 19:22 | NUR ---
RECEIVED CRITICAL LAB VALUE FROM JAJA IN LAB. MAGNESIUM OF 0.9. DR PAYTON NOTIFIED AT 1922 OF LAB VALUE. PHONE ORDER VERIFIED BY READ BACK. MAGESIUM SULFATE 4MG IV ONCE ORDERED.
--- NOTE | 2017-10-04 19:26 | NUR ---
1921 - Lab called with a critical lab value of Magnesium of 0.9. 1924 - Dr Pollard notified of above levels, new orders for Mag Sulfate 4G IV 1X 1926 - HEAT TREAT TECHNICIANFRANCO Carpenter notified of above as pt is still in the ER, no report given to Med surg at this time onthis pt yet.
--- NOTE | 2017-10-04 20:08 | NUR ---
VITALS AND BED WEIGHT DONE AND CHARTED. CALL LIGHT AND PHONE WITHIN REACH. GOT HER TWO WARM BLANKETS.
--- NOTE | 2017-10-04 21:00 | NUR ---
IN BED, REPOSITIONED TO HER COMFORT. NO C/O PAIN. COOPERATIVEW TIH ASSESSMENT, RECEIVING 4GR OF MAG SULFATE IV, BLOOD LEVELS OF MAG 0.9, WILL RECEIVE 40MEQ OF POTASSIUM AFTERWARDS. MULTIPLE ECHYMOTIC AREAS IN ARMS, INTACT, LARGE TENDER ASCITIC ABD PRESENT, PK, C/O LOOSE STOOLS. TRACE EDEMA AT ANKLES, BILAT, ELEVATED. WEARING ATTENDS. ORIENTED TO ROOM AND PROCEDURES, STATED UNDERSTANDING, MOIST NON PRODUCTIVE COUGH PRESENT, AUDIBLE WHEEZING AROUND THROAT AREA, LUNGS CLEAR, DIM AT BASES, ON ROOM AIR. PT IS A HEAVY DAILY 1-2 PACK A DAY SMOKER, DAILY DRINKER OF 1-3 DAILY BOTTLES OF "MIKES HARD LEMONADE". BED ALRM ON, HIGH FALL RISK PRECAUTIONS ON, CALL LIGHT AT BEDSIDE. TOLERATING LIQUIDS WELL,
--- NOTE | 2017-10-04 22:11 | NUR ---
RESTING, EYES CLOSED, WARM BLANKETS GIVEN ON REQUEST. TOLERATING MAG RIDER W/O PROBLEMS, LEGS ELEVATED, REDNESS AND EDEMA L LEG PRESENT, TENDER AND WARM TO TOUCH
--- NOTE | 2017-10-05 00:10 | NUR ---
RESTING, EYES CLOSED, NOR ANA MARIA DISTRESS, NO C/O PAIN, K RIDER INFUSING W/O PROBLEMS, LEGS ELEVATED
--- NOTE | 2017-10-05 02:14 | NUR ---
VITALS AMD I&OS DONE AND CHARTED. CHANGED HER ATTEND INCONTINENT OF BM AND URINE. BOOSTED HER UP IN BED WITH THE HELP FROM FRANCO MCWILLIAMS. BEDSIDE TABLE AND CALL LIGHT WITHIN REACH.
--- NOTE | 2017-10-05 06:03 | NUR ---
AWAKE, BLOOD DRAWN, COOPERATIVE. NO C/O N/V OR L CALF PAIN. LEGS ELEVATED, DECREASED EDEMA AND REDNESS. CONTINUES TO HAVE MOIST, NON PRODUCTIVE OCASSIONAL COUGH, LUNGS WITH FINE CRAKLES AND DIMINISHED AT BASES, DENIES C/O SOB. LARGE ASCITIC TENDER ABD. PT HAS BEEN INCONTINENT OF BOWEL AND BLADDER. ON ROOM AIR. NO ADVERSE REACTION TO IV 4GR MAG RIDER OR 40MEQ POTASSIUM RIDER. TOLERATED WELL, SL INTACT. TURNS SELF IN BED
--- NOTE | 2017-10-05 07:20 | NUR ---
HANDOFF REPORT RECEIVED FROM ELASTIC CUTTER RN. PT SLEEPING, LEFT UNDISTURBED.
--- NOTE | 2017-10-05 08:30 | NUR ---
PT INCONTINENT OF STOOL, PERICARE WITH BARRIER WIPES COMPLETED. PT DENIES OTHER NEEDS AT THSI TIME.
--- NOTE | 2017-10-05 08:45 | NUR ---
PT RESTING IN BED. PT DENIES PAIN. PT ON ROOM AIR, LUNG SOUNDS WITH COARSE CRACKLES AND EXPIRATORY WHEEZE TO LEFT SIDE, LOOSE COUGH. PT WIHT POOR APPETITE, DID NOT EAT BREAKFAST, BOWEL TONES ACTIVE, ABD WITH ASCITES. CMS INTACT, CLARISSA MITCHELL BLE TRACE, REDENESS TO LEFT LOWER LEG, PULSES PALPABLE. IV SALINE LOCKED. PT DENIES OTHER NEEDS AT THIS TIME. DISCUSSED PLAN OF CARE.
--- NOTE | 2017-10-05 10:19 | NUR ---
PATIENT ON A LOW-SODIUM DIET DUE TO ASCITES. SHE HAS HAD A POOR APPETITE AT HOME. HISTORY OF ETOH USE. SAYS "I LOST MY APPETITE. I DIDN'T EAT FOR A MONTH." SAYS SHE WILL "PICK IT UP HERE." DIDN'T WANT AN ENSURE RIGHT NOW. LUNCH IS ORDERED.
--- NOTE | 2017-10-05 11:57 | NUR ---
PATIENT REFUSED SHOWER AND BED BATH TODAY. WE HAVE BEEN DOING HEENA CARE EVERYTIME WE CHANGE HER.
--- NOTE | 2017-10-05 12:45 | NUR ---
PT RESTING IN BED. PT DENIES PAIN. PT ON ROOM AIR, LUNG SOUNDS CLEAR WITH DIMINISHED BASES, DENIES SOB. PT SALINE LOCKED. PT WITH POOR APPETITE, ATE SMALL AMOUNT OF LUNCH. CMS INATCT, EDEMA TO LEFT LOWER LEG UNCHANGED, PULSES PALPABLE. ALLEVYN DRESSING PLACED TO LEFT ANKLE SORE, BLANCHABLE. PT DENIES OTHER NEEDS AT THIS TIME. PT ENCOURAGED TO INCREASE PO INTAKE, AGREEABLE TO ENSURE.
[2017-10-05] MEDS ORDERED: FUROSEMIDE20 MG PO (14:51)
[2017-10-05] MEDS ORDERED: SPIRONOLACTONE25 MG PO (14:51)
[2017-10-05] MEDS ORDERED: POTASSIUM20 MEQ/15 PO (14:52)
[2017-10-05] MEDS ORDERED: LEVOTHYROXINE75 MCG PO (14:55)
--- NOTE | 2017-10-05 15:01 | NUR ---
PT INCONTINENT OF STOOL AND URINE. PERICARE COMPLETED. PT DENIES OTHER NEEDS AT THIS TIME.
--- NOTE | 2017-10-05 16:16 | NUR ---
MED REC COMPLETE
--- NOTE | 2017-10-05 16:55 | NUR ---
PT RESTIGN IN BED. PT INCONTINENT OF URINE, PERICARE COMPLETED, BARRIER CREAM APPLIED. NO ACUTE CHANGES. PT DENIES OTHER NEEDS AT THIS TIME.
--- NOTE | 2017-10-05 17:43 | NUR ---
PT ON ROOM, LUNG SOUND CLEAR WITH DIMINISHED BASES. PT ALERT/ORIENTED, WITHOUT S/S OF ETOH WITHDRAWAL. PT WITH POOR APPETITE, DRANK ENSURE. PT INCONTINENT OF URINE AND STOOL. PT WITH ASCITES, BOWEL TONES ACTIVE. T WITH 1+ EDEMA TO LEFT LEG, BRUISING TO LEFT CALF AND ANKLE, ALLEVYN TO ANKLE. SALINE LOCKED.
--- NOTE | 2017-10-05 19:37 | NUR ---
RECEIVED BEDSIDE REPORT FROM DAY SHIFT NURSE. PT IS IN BED. A/O AT THIS TIME. SL IN RAC. PT REPORTS NO NEEDS AT THIS TIME. CALL LIGHT WITHIN REACH.
--- NOTE | 2017-10-05 19:40 | NUR ---
INCONTINET OF BOWEL. CHANGED. CALL LIGHT WITHIN REACH. NO OTHER NEEDS
--- NOTE | 2017-10-05 22:12 | NUR ---
ASSESSMENT COMPLETED. LUNGS COARSE. HEART SOUNDS REGULAR. ACITES. BOWEL TONES ACTIVE. REPORTS NO PAIN. NON PRODUCTIVE COUGH. REDNESS TO LLE. TRACE EDEMA LLE. GOOD INTAKE OF FLUIDS. REPORTS NO NEEDS AT THIS TIME. [facility]
--- NOTE | 2017-10-05 22:42 | NUR ---
PT INCONINENT OF STOOL. HEENA CARE DONE WITH BARRIER CREAM. NEW ATTENDS IN PLACE. CALL LIGHT WITHIN REACH. REPORTS NO OTHER NEEDS AT THIS TIME.
--- NOTE | 2017-10-05 23:42 | NUR ---
provided warm blankets per pt request. call light within reach. reports no other needs at this time
--- NOTE | 2017-10-06 00:09 | NUR ---
pt appears to be sleeping. respirations equal and nonlabored. call light within reach
--- NOTE | 2017-10-06 02:11 | NUR ---
PT APPEARS TO BE SLEEPING. CALL [facility] WITHIN REACH. RESPIRATIONS EQUAL AND NONLABORED
--- NOTE | 2017-10-06 04:00 | NUR ---
PT INCONTINET OF URINE. HEENA CARE DONE. ATTENDS IN PLACE. CALL LIGHT WITHIN REACH.
--- NOTE | 2017-10-06 06:44 | NUR ---
INCONTIENT OF URINE. HEENA CARE AND BARRIER CREAM APPLIED. CALL LIGHT WITHIN REACH. REPORTS NO OTHER NEEDS AT THIS TIME,
--- NOTE | 2017-10-06 06:45 | NUR ---
SLEPT MOST THE NIGHT INCONT OF BOWEL AND URINE. 1-2SB FWW. CURRENT DRINKER. REDNESS LLE. ALEVYN ON LEFT ANKLE. LUNGS COARSE. SCATTERED BRUISING. POOR APPETITE. ENCOURAGE PO INTAKE. JAMES. NAIN.
--- NOTE | 2017-10-06 08:00 | NUR ---
RECEIVED REPORT AT 0700, FOUND PT AWAKE IN BED NOT IN A GOOD MOOD. PT HAD NO NEEDS AT THAT TIME. I SAT PT UP AT SIDE OF BED FOR BREAKFAST. HER APPETITE IS STILL VERY POOR.
--- NOTE | 2017-10-06 10:00 | NUR ---
V/S ARE WDL. PT HAS VERY POOR APPETITE AND AT TIMES IS NOT COMPLIANT WITH TAKING HER SCHEDULED MEDS. ABD IS VERY DISTENDED AND FIRM. LEFT CALF AT DVT SITE IS RED ANDWARM, PEDIS PULSES ARE +2 HOWEVER. ALL LOBES ARE COARS BUT PT DENIES SOB. PT AT THIS TIME WISHES TO BE LEFT ALONE BECAUSE SHE WANTS TO SLEEP.
--- NOTE | 2017-10-06 12:00 | NUR ---
CHANGED PT DUE TO INCONNTINENT VOID. PT ORDERED LUNCH. PT HAS NO NEEDS AT THIS TIME.
--- NOTE | 2017-10-06 14:00 | NUR ---
V/S ARE WDL. ABD AND LUNGS HAVE NO CHANGE SINCE THE FIRST ASSESSMENT. 2 RN'S TOOKE PT TO [facility] FOR VOID AND BM. PT ATE ABOUT 10% OF HER LUNCH. OTHERWISE PT SEEMS IN A BETTER MOOD AT THIS TIME.
--- NOTE | 2017-10-06 16:00 | NUR ---
PT AT THIS TIME IS AWAKE IN BED WITH SIGNIFICANT OTHER WATCHING TV. BED BATH TO BE DONE.
--- NOTE | 2017-10-06 17:31 | NUR ---
PT OVERALL HAD AN UNEVENTFUL DAY. V/S ALL SHIFT WERE WDL. ALL LOBES ARE COARSE AT ALL TIMES. ABD HAS SEVERE ACITIES PRESENT AND ABD IS FIRM AND TENDER TOUCH AT TIMES. PT OVERALL IS VERY WEAK AND MOSTLY INCONNTINENT. PT ALSO AT TIMES HAS EMOTIONAL BREAKDOWNS IN REGARDS TO HER CONDITION AND THE FACT THAT SHE IS AWARE THAT SHE PERHAPS WILL PASS AWAY BEFORE TOO LONG STATED BY PT. PO INTAKE IS STILL VERY POOR. PT ARE ABOUT 20% BREAKFAST, 10% LUNCH AND NO DINNER. LEFT CALF IS STILL RED AND TENDER TO TOUCH. PEDIS PULSE IS +2 THOUGH. NO NEW CONCERNS AT THIS TIME.
--- NOTE | 2017-10-06 19:00 | NUR ---
BEDSIDE REPORT RECEIVED FROM OFFGOING RN. PT LYING IN BED ALERT. PT DENIES NEEDS AT THIS TIME. CALL LIGHT WITHIN REACH.
--- NOTE | 2017-10-06 21:12 | NUR ---
PT ASSESSMENT COMPLETE. PT DENIES PAIN, REPORTS OCCASIONAL NAUSEA. PT ALSO REPORTS OCCASSIONAL SOB, LUNG SOUNDS COARSE TO ALL DARLING, DOES NOT CLEAR WITH COUGH. ABDOMEN SEVERLY DISTENDED. BT'S ACTIVE, PT "DOESN'T KNOW" IF ABD IS TENDER. PT REPORTS TENDERNESS TO LLE, CMS INTACT OT ALL EXTREMITIES. ALLEVYN FOAM IN PLACE OT L ANKLE. L MURCIA WITH 1 CMX 1 CM OPEN AREA. SCAB PRESENT TO L KNEE. BRUISING SCATTERED OVER ENTIRE BODY. PT DENIES OTHER NEEDS, STATES THAT SHE WILL CALL IF SHE NEEDS TO BE CHANGED. CALL LIGHT IS WITHIN PT'S REACH.
--- NOTE | 2017-10-06 23:55 | NUR ---
PT RESTING IN BED WITH EYES CLOSED. RESPIRATIONS 16, EVEN AND UNLABORED, NO S/SX OF DISTRESS NOTED. PT APPEARS TO BE SLEEPING. PT DOES NOT WAKE WHILE LOAN ASSOCIATE IN DOORWAY. CALL LIGHT WITHIN PT'S REACH, ROOM WITHIN VIEW OF NURSES STATION.
--- NOTE | 2017-10-07 00:50 | NUR ---
PT SHOUTS SUPERVISOR CAPACITOR PROCESSING'S NAME FROM ROOM. PT REQUESTS TO HAVE ATTENDS CHANGED. LG BM PRESENT. PT CHANGED AND REPOSITIONED. PT DENIES OTHER NEEDS AT THIS TIME. CALL LIGHT WITHIN REACH. ROOM WITHIN VIEW OF NURSES STATION.
--- NOTE | 2017-10-07 03:32 | NUR ---
PT RESTING IN BED WITH EYES CLOSED. RESPIRATIONS EVEN AND UNLABORED. PT APPEARS TO BE SLEEPING. CALL LIGHT WITHIN PT REACH.
--- NOTE | 2017-10-07 03:52 | NUR ---
PT RESTING WITH EYES CLOSED. APPEARS TO BE SLEEPING. PT WAKES EASILY. ASSESSMENT COMPLETE. PT DENIES PAIN. LUNGS SOUND COARSE THROUGHOUT. BT'S ACTIVE, FIRM ABD WITH ASCITES CONTINUES. PT STATES "I DON'T KNOW" WHEN ASSESSED FOR ABD TENDERNESS. PT'S L LEG CONTINUES TO BE TENDER. FOAM DRESSING TO LLE C/D/I, SCAB TO L KNEE AND SORE TO L MURCIA ARE PREVIOUSLY NOTED, UNCHANGED FROM PRIOR ASSESSMENT. PT DENIES OTHER NEEDS AT THIS TIME. CALL LIGHT WITHIN PT REACH. ROOM WITHIN VIEW OF NURSES STATION.
--- NOTE | 2017-10-07 05:34 | NUR ---
PT SLEPT THROUGHOUT THE SHIFT. CALLS APPROPRIATELY FOR ATTENDS TO BE CHANGED. SCATTERED BRUISING. ALLEVYN FOAM TO L ANKLE. SCABS TO L KNEE. OPEN AREA 1 CM X 1 CM TO L MURCIA. POOR APPETITE, ENCOURAGE INTAKE. IV SL. 1-2 PA TO BSC.
--- NOTE | 2017-10-07 06:55 | NUR ---
BEDSIDE HANDOFF REPORT RECEIVED FROM SUPERINTENDENT DRILLING RN. PT RESTING IN BED. PT DENIES NEEDS AT THIS TIME.
--- NOTE | 2017-10-07 08:05 | NUR ---
PATIENT CALLED TO BE PULLED UP IN BED. PATIENT WAS LYING ALMOST FLAT AND CHEWING SAUSAGE, THIS WEDDING FLORIST RAISED HOB, PATIENT DEMANDED THAT BE STOPPED, REPORTS "IT HURTS" TO SIT UP. THIS WEDDING FLORIST STAYED BEDSIDE UNTIL PATIENT SWALLED HER FOOD. WEDDING FLORISTCarmina DELGADO TO ASSIST IN REPOSIONING PATIENT. FRESH ICE WATER WAS GIVEN. CALL LIGHT IN REACH
--- NOTE | 2017-10-07 09:15 | NUR ---
PT RESTING IN BED. PT ON ROOM AIR, LUNG SOUNDS COARSE, DENIES SOB. PT WITH ASCITES, ABD FIRM, BOWEL TONES ACTIVE, CONTINUES TO HAVE POOR APPETITE. PT SLAINE LOCKED. PT INCONTINENT OF URINE, PERICARE PERFORMED. CMS INATCT, PULSES PALPABLE. PT WITH REDNESS TO LEFT LOWER EXTREMITY, ALLEVYN DRESSING TO LEFT ANKLE. DISCUSSED PLAN OF CARE FOR THE DAY, DISCUSSED NEEDING TO WALK BEFORE ABLE TO DISCHARGE, PT AGREEABLE. PT DENIES OTHER NEEDS AT THIS TIME.
--- NOTE | 2017-10-07 09:37 | NUR ---
PT WITH EMESIS FROM TAKING MORNING MEDICATIONS. UNABLE TO VISUALIZE MEDICATIONS IN EMESIS BAG.
[2017-10-07] MEDS ORDERED: ZOFRAN4 MG PO (09:45)
[2017-10-07] MEDS ORDERED: ELIQUIS5 MG PO (09:46)
--- NOTE | 2017-10-07 09:57 | NUR ---
PATIENT IN BED, VITALS AND I/OS CHARTED. PATIENT VERY EAGER TO GO HOME, DETERMINED D/C TODAY, " I NEED A CIGARETTE" THIS CONDUCTOR AND ENGINEER TALKE DTO PAIENT ABOUT AMBULATING HALLS TODAY, PATIENT REFUSED OF NOW. WARM BLANKET GIVEN. CALL LIGHT IN REACH
== END 2017-10-07 10:42 | disposition home or self-care (01) | DRG 300 ==
LOC: ED 15:23 → MS 18:49
PROVIDERS: ADMIT Internal Medicine
DX: I82.402 Acute embolism and thrombosis of unspecified deep veins of left lower extremity (principal); E46 Unspecified protein-calorie malnutrition; E87.1 Hypo-osmolality and hyponatremia; K72.90 Hepatic failure, unspecified without coma; K70.31 Alcoholic cirrhosis of liver with ascites; F17.200 Nicotine dependence, unspecified, uncomplicated; F10.10 Alcohol abuse, uncomplicated; K52.839 Microscopic colitis, unspecified; E02 Subclinical iodine-deficiency hypothyroidism; D72.829 Elevated white blood cell count, unspecified; E87.6 Hypokalemia; E83.42 Hypomagnesemia; Z91.14 Patient's other noncompliance with medication regimen; Z88.8 Allergy status to other drugs, medicaments and biological substances; Z79.52 Long term (current) use of systemic steroids; Z79.899 Other long term (current) drug therapy; Z68.21 Body mass index [BMI] 21.0-21.9, adult
CPT/HCPCS: 36415; 71045; 73590; 80048; 80053; 81001; 83605; 83735; 84100; 85025; 85379; 85610; 93970; 99285; G0480; J3475; J3480; J7060